=== PATIENT | female | born 1995 | race Caucasian/White ===

== ENCOUNTER 2018-10-28 23:18 | Emergency (ER) | payer MEDICARE, MEDICAID ==
[2018-10-28 23:54] LABS: ABSOLUTE BASOPHILS # (AUTO) 0.1 10^3/uL (0.0-0.2); ABSOLUTE EOSINOPHILS # (AUTO) 0.2 10^3/uL (0.0-0.6); ABSOLUTE LYMPHOCYTES (AUTO) 2.6 10^3/uL (0.5-4.7); ABSOLUTE MONOCYTES (AUTO) 0.6 10^3/uL (0.1-1.4); ABSOLUTE NEUT (AUTO) 7.6 10^3/uL (1.7-8.2); BASOPHILS % (AUTO) 0.8 % (0-2); EOSINOPHILS % (AUTO) 1.9 % (0-6); HEMOGLOBIN 11.2 g/dL (12.0-15.5); LYMPHOCYTES % (AUTO) 23.8 % (13-45); MEAN CORPUSCULAR HEMOGLOBIN 30.5 pg (27.0-33.4); MEAN CORPUSCULAR VOLUME 90 fl (80-97); MONOCYTES % (AUTO) 5.4 % (3-13); PLATELET COUNT 184 10^3/uL (150-450); RED BLOOD COUNT 3.68 10^6/uL (3.72-5.28); RED CELL DISTRIBUTION WIDTH 12.9 % (11.5-14.0); SEGMENTED NEUTROPHILS % (AUTO) 68.1 % (42-78); TOTAL CELLS COUNTED % (AUTO) 100 %; WHITE BLOOD COUNT 11.1 10^3/uL (4.0-10.5)
[2018-10-28 23:55] LABS: APPEARANCE,URINE CLEAR; BILIRUBIN,URINE NEGATIVE (NEGATIVE); COLOR,URINE YELLOW; GLUCOSE, URINE NEGATIVE (NEGATIVE); KETONES,URINE NEGATIVE (NEGATIVE); LEUKOCYTE ESTERASE,URINE NEGATIVE (NEGATIVE); NITRITE,URINE NEGATIVE (NEGATIVE); PROTEIN,URINE NEGATIVE (NEGATIVE); URINE SPECIFIC GRAVITY 1.013; UROBILINOGEN,URINE NEGATIVE mg/dL (<2.0)
[2018-10-29 00:09] LABS: URINE AMPHETAMINES SCREEN NEGATIVE; URINE BARBITURATES SCREEN NEGATIVE; URINE BENZODIAZEPINES SCREEN NEGATIVE; URINE COCAINE SCREEN NEGATIVE; URINE MARIJUANA (THC) SCREEN NEGATIVE; URINE METHADONE SCREEN NEGATIVE; URINE PHENCYCLIDINE SCREEN NEGATIVE
[2018-10-29 00:15] LABS: ALANINE AMINOTRANSFERASE 47 U/L (9-52); ALBUMIN 3.5 g/dL (3.5-5.0); ALKALINE PHOSPHATASE 67 U/L (38-126); ANION GAP 8 (5-19); ASPARTATE AMINO TRANSFERASE 29 U/L (14-36); BILIRUBIN,DIRECT 0.2 mg/dL (0.0-0.4); BILIRUBIN,TOTAL 0.2 mg/dL (0.2-1.3); BLOOD UREA NITROGEN 9 mg/dL (7-20); CALCIUM 9.1 mg/dL (8.4-10.2); CARBON DIOXIDE 23 mmol/L (22-30); CHLORIDE 106 mmol/L (98-107); GLUCOSE 110 mg/dL (75-110); POTASSIUM 3.7 mmol/L (3.6-5.0); SODIUM 137.3 mmol/L (137-145); TOTAL PROTEIN 6.8 g/dL (6.3-8.2)
[2018-10-29 00:21] LABS: ACETAMINOPHEN < 10 ug/mL (10-30); ALCOHOL < 10 mg/dL (NONE DETECTED); SALICYLATE < 1.0 mg/dL (2.0-20.0)
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
--- NOTE | 2018-10-29 09:23 | ER Document Report ---
Doctor's Note Notes: 10/29/18 09:22 22-year-old female in her second trimester with IVC paperwork secondary to some increased depression. She is already followed at [facility]. Patient is denying all allegations. Vital signs are stable. Awaiting the psychiatry/psychology evaluation.
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
[2018-10-29 10:40] VITALS: BP 110/63
[2018-10-29] MEDS ORDERED: LURASIDONE HCL 40 MG TABLET PO SCH (17:00)
--- NOTE | 2018-10-29 23:47 | EKG REPORT ---
SEVERITY:- NORMAL ECG - SINUS RHYTHM : Confirmed by: Jamia Chavez 29-Oct-2018 23:46:46
== END 2018-10-29 10:43 | disposition home or self-care (01) ==
LOC: ER 23:18
DX: O99.342 Other mental disorders complicating pregnancy, second trimester (principal); F31.9 Bipolar disorder, unspecified; Z79.899 Other long term (current) drug therapy; O26.892 Other specified pregnancy related conditions, second trimester; T76.11XA Adult physical abuse, suspected, initial encounter; Z3A.00 Weeks of gestation of pregnancy not specified; Z63.0 Problems in relationship with spouse or partner; Z88.2 Allergy status to sulfonamides
CPT/HCPCS: 36415; 80053; 80307; 81001; 84703; 85025; 93005; 93010; 99285

== ENCOUNTER 2018-11-15 14:22 | Observation (INO) | payer MEDICARE, MEDICAID ==
[2018-11-15] MEDS ORDERED: RINGERS SOLUTION,LACTATED 1,000 ML IV ONE (15:15)
[2018-11-15] MEDS ORDERED: RINGERS SOLUTION,LACTATED 1,000 ML IV PRN (15:15)
[2018-11-15 15:18] LABS: AMORPHOUS SEDIMENT,URINE 1+ /HPF; APPEARANCE,URINE CLOUDY; BILIRUBIN,URINE NEGATIVE (NEGATIVE); COLOR,URINE DARK YELLOW; GLUCOSE, URINE NEGATIVE (NEGATIVE); KETONES,URINE 20 mg/dL (NEGATIVE); LEUKOCYTE ESTERASE,URINE TRACE (NEGATIVE); NITRITE,URINE NEGATIVE (NEGATIVE); PROTEIN,URINE 30 mg/dL (NEGATIVE); URINE SPECIFIC GRAVITY 1.027
[2018-11-15 15:42] LABS: URINE AMPHETAMINES SCREEN NEGATIVE; URINE BENZODIAZEPINES SCREEN NEGATIVE; URINE METHADONE SCREEN NEGATIVE; URINE PHENCYCLIDINE SCREEN NEGATIVE
[2018-11-15 15:52] LABS: URINE BARBITURATES SCREEN UNCONFIRMED POSITIVE; URINE COCAINE SCREEN UNCONFIRMED POSITIVE; URINE MARIJUANA (THC) SCREEN UNCONFIRMED POSITIVE
[2018-11-15 16:08] LABS: ABSOLUTE EOSINOPHILS # (AUTO) 0.1 10^3/uL (0.0-0.6); ABSOLUTE LYMPHOCYTES (AUTO) 1.9 10^3/uL (0.5-4.7); ABSOLUTE MONOCYTES (AUTO) 0.7 10^3/uL (0.1-1.4); ABSOLUTE NEUT (AUTO) 7.8 10^3/uL (1.7-8.2); BASOPHILS % (AUTO) 0.4 % (0-2); EOSINOPHILS % (AUTO) 1.2 % (0-6); HEMOGLOBIN 10.9 g/dL (12.0-15.5); LYMPHOCYTES % (AUTO) 17.8 % (13-45); MEAN CORPUSCULAR HEMOGLOBIN 30.8 pg (27.0-33.4); MEAN CORPUSCULAR HGB CONC 35.1 g/dL (32.0-36.0); MEAN CORPUSCULAR VOLUME 88 fl (80-97); MONOCYTES % (AUTO) 6.6 % (3-13); PLATELET COUNT 194 10^3/uL (150-450); RED BLOOD COUNT 3.53 10^6/uL (3.72-5.28); RED CELL DISTRIBUTION WIDTH 12.7 % (11.5-14.0); TOTAL CELLS COUNTED % (AUTO) 100 %; WHITE BLOOD COUNT 10.5 10^3/uL (4.0-10.5)
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
[2018-11-15 16:21] LABS: INTERNATIONAL RATION (INR) 1.04; PROTHROMBIN TIME 14.2 SEC (11.4-15.4)
[2018-11-15 16:22] LABS: PARTIAL THROMBOPLASTIN TIME 30.6 SEC (23.5-35.8)
[2018-11-15] MEDS ORDERED: LURASIDONE HCL 60 MG TABLET PO SCH (17:00)
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
[2018-11-15] MEDS ORDERED: LURASIDONE HCL 40 MG TABLET PO SCH (18:15)
[2018-11-15] MEDS ORDERED: ACETAMINOPHEN 325 MG TABLET PO PRN (18:27)
[2018-11-15 18:31] LABS: FETAL RBC COUNT 0
[2018-11-15 18:33] LABS: KB INTERPRETATION NEGATIVE (NEGATIVE)
[2018-11-15 19:02] LABS: EPITHELIALS (WET MOUNT) 4+ EPITHELIALS SEEN; T.VAGINALIS (WET MOUNT) NO TRICHOMONAS SEEN; WBCS (WET MOUNT) FEW WBCS SEEN; YEAST (WET MOUNT) NO YEAST SEEN
[2018-11-15 19:03] LABS: RBCS (WET MOUNT) NO RBCS SEEN
[2018-11-15 19:12] LABS: CHLAM PCR NOT DETECTED (NOT DETECT); GON PCR NOT DETECTED (NOT DETECT)
[2018-11-15 19:19] LABS: ANION GAP 9 (5-19); BLOOD UREA NITROGEN 7 mg/dL (7-20); CARBON DIOXIDE 21 mmol/L (22-30); CHLORIDE 108 mmol/L (98-107); CREATINE KINASE 62 U/L (30-135); GLUCOSE 90 mg/dL (75-110); POTASSIUM 3.8 mmol/L (3.6-5.0); SODIUM 138.1 mmol/L (137-145)
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
[2018-11-16] MEDS ORDERED: ACETAMINOPHEN 325 MG TABLET ONE (07:32)
[2018-11-16 08:45] LABS: HEMATOCRIT 30.9 % (36.0-47.0); HEMOGLOBIN 10.8 g/dL (12.0-15.5); MEAN CORPUSCULAR HEMOGLOBIN 30.9 pg (27.0-33.4); MEAN CORPUSCULAR HGB CONC 34.8 g/dL (32.0-36.0); MEAN CORPUSCULAR VOLUME 89 fl (80-97); PLATELET COUNT 189 10^3/uL (150-450); RED BLOOD COUNT 3.48 10^6/uL (3.72-5.28); RED CELL DISTRIBUTION WIDTH 12.8 % (11.5-14.0)
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
[2018-11-16] MEDS ORDERED: LURASIDONE HCL 60 MG TABLET PO SCH ×2 (17:00→19:00)
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
[2018-11-23 14:38] LABS: BARBITURATE CONFIRMATION UR Negative (Cutoff=200)
[2018-11-23 22:39] LABS: COCAINE METABOLITE CONFIRM UR Positive (.)
[2018-11-24 09:33] LABS: CANNABINOID CONFIRMATION UR Comment: (.)
== END 2018-11-16 11:45 | disposition home or self-care (01) ==
LOC: LC 14:22 → LR 15:31
PROVIDERS: ADMIT Student in an Organized Health Care Education/Training Program; ATTEND Student in an Organized Health Care Education/Training Program
PROC: 4A1HXCZ Monitoring of Products of Conception, Cardiac Rate, External Approach (ICD-10-PCS; principal; 2018-11-16)
DX: O99.012 Anemia complicating pregnancy, second trimester (principal); D64.9 Anemia, unspecified; O9A.312 Physical abuse complicating pregnancy, second trimester; Y07.01 Husband, perpetrator of maltreatment and neglect; S39.91XA Unspecified injury of abdomen, initial encounter; O99.342 Other mental disorders complicating pregnancy, second trimester; F31.9 Bipolar disorder, unspecified; O99.322 Drug use complicating pregnancy, second trimester; F14.10 Cocaine abuse, uncomplicated; F12.10 Cannabis abuse, uncomplicated; S00.81XA Abrasion of other part of head, initial encounter; S00.83XA Contusion of other part of head, initial encounter; S05.11XA Contusion of eyeball and orbital tissues, right eye, initial encounter; S70.12XA Contusion of left thigh, initial encounter; S30.0XXA Contusion of lower back and pelvis, initial encounter; Y04.2XXA Assault by strike against or bumped into by another person, initial encounter; Y92.009 Unspecified place in unspecified non-institutional (private) residence as the place of occurrence of the external cause; O26.892 Other specified pregnancy related conditions, second trimester; R51 Headache; M26.621 Arthralgia of right temporomandibular joint; Z3A.20 20 weeks gestation of pregnancy; Z63.0 Problems in relationship with spouse or partner; Z87.891 Personal history of nicotine dependence; Z83.3 Family history of diabetes mellitus; Z81.8 Family history of other mental and behavioral disorders; Z91.410 Personal history of adult physical and sexual abuse
CPT/HCPCS: 36415 ×2; 87210; 80307 ×2; 82550; 85025; 85027; 85362; 85610; 85730; 80048; 81001; 85460; 87491; 87591; 76815; 59899; Q0114; G0480 ×6; A9270; 80345; 80349; 80353

== ENCOUNTER 2018-11-27 08:52 | Outpatient (CLI) | payer MEDICARE, MEDICAID ==
[2018-11-27 10:21] LABS: APPEARANCE,URINE SLIGHTLY-CLOUDY; BILIRUBIN,URINE NEGATIVE (NEGATIVE); GLUCOSE, URINE NEGATIVE (NEGATIVE); KETONES,URINE 80 mg/dL (NEGATIVE); LEUKOCYTE ESTERASE,URINE TRACE (NEGATIVE); NITRITE,URINE NEGATIVE (NEGATIVE); PROTEIN,URINE 30 mg/dL (NEGATIVE); URINE SPECIFIC GRAVITY 1.023
[2018-11-27 10:23] LABS: COLOR,URINE YELLOW
[2018-11-27 10:48] LABS: URINE AMPHETAMINES SCREEN NEGATIVE; URINE BARBITURATES SCREEN NEGATIVE; URINE BENZODIAZEPINES SCREEN NEGATIVE; URINE METHADONE SCREEN NEGATIVE; URINE PHENCYCLIDINE SCREEN NEGATIVE
[2018-11-27 10:56] LABS: URINE COCAINE SCREEN UNCONFIRMED POSITIVE; URINE MARIJUANA (THC) SCREEN UNCONFIRMED POSITIVE
== END 2018-11-27 11:39 | disposition home or self-care (01) ==
LOC: LC 08:52
PROVIDERS: ATTEND Obstetrics & Gynecology Gynecology
PROC: 4A1HXCZ Monitoring of Products of Conception, Cardiac Rate, External Approach (ICD-10-PCS; principal; 2018-11-27)
DX: O36.8120 Decreased fetal movements, second trimester, not applicable or unspecified (principal); O99.322 Drug use complicating pregnancy, second trimester; F14.90 Cocaine use, unspecified, uncomplicated; F12.90 Cannabis use, unspecified, uncomplicated; Z3A.27 27 weeks gestation of pregnancy
CPT/HCPCS: 80307; 81001

== ENCOUNTER 2018-12-02 13:43 | Outpatient (CLI) | payer MEDICAID, MEDICARE ==
[2018-12-02 15:56] LABS: APPEARANCE,URINE CLEAR; BILIRUBIN,URINE NEGATIVE (NEGATIVE); COLOR,URINE YELLOW; GLUCOSE, URINE NEGATIVE (NEGATIVE); KETONES,URINE NEGATIVE (NEGATIVE); LEUKOCYTE ESTERASE,URINE NEGATIVE (NEGATIVE); NITRITE,URINE NEGATIVE (NEGATIVE); PROTEIN,URINE NEGATIVE (NEGATIVE); URINE SPECIFIC GRAVITY 1.009; UROBILINOGEN,URINE NEGATIVE mg/dL (<2.0)
[2018-12-02 16:07] LABS: URINE AMPHETAMINES SCREEN NEGATIVE; URINE BARBITURATES SCREEN NEGATIVE; URINE BENZODIAZEPINES SCREEN NEGATIVE; URINE COCAINE SCREEN UNCONFIRMED POSITIVE; URINE MARIJUANA (THC) SCREEN UNCONFIRMED POSITIVE; URINE METHADONE SCREEN NEGATIVE; URINE PHENCYCLIDINE SCREEN NEGATIVE
== END 2018-12-02 15:09 | disposition home or self-care (01) ==
LOC: LC 13:43
PROVIDERS: ATTEND Obstetrics & Gynecology
PROC: 4A1HXCZ Monitoring of Products of Conception, Cardiac Rate, External Approach (ICD-10-PCS; principal; 2018-12-02)
DX: O36.8120 Decreased fetal movements, second trimester, not applicable or unspecified (principal); Z3A.27 27 weeks gestation of pregnancy
CPT/HCPCS: 80307; 81001

== ENCOUNTER 2018-12-02 15:15 | Emergency (ER) | payer MEDICAID, MEDICARE ==
--- NOTE | 2018-12-02 16:30 | ER Document Report ---
HPI - HPI Patient complains to provider of: right foot pain Time Seen by Provider: 12/02/18 15:21 Onset: Just prior to arrival Onset/Duration: Sudden, Persistent Quality of pain: Achy, Throbbing Severity: Severe Pain Level: 4 Context: Patient presents to the emergency department with complaints of right foot pain. She reports she jumped off her porch and now complains of foot pain. Patient arrived via EMS. When patient arrived she reports she has not felt the baby move recently. Patient is 7 months G1, P0. She was sent to L&D for evaluation. L&D confirmed baby movement and she was returned to the emergency department for pain and further evaluation. Patient denies hitting her head. Associated Symptoms: None Exacerbated by: Denies, Movement Relieved by: Denies Similar symptoms previously: No Recently seen / treated by doctor: No - REPRODUCTIVE Reproductive: REPORTS: : Past Medical History - General Information source: Patient - Social History Smoking Status: Current Every Day Smoker Frequency of alcohol use: Social Drug Abuse: Cocaine, Marijuana Family History: CAD, DM, Hypertension, Malignancy, Other - Significant history of mental illness Renal/ Medical History: Denies: Hx Peritoneal Dialysis Psychiatric Medical History: Reports: Hx Bipolar Disorder Past Surgical History: Reports: Hx Orthopedic Surgery - R arm Vertical Provider Document - CONSTITUTIONAL Agree With Documented VS: Yes Exam Limitations: No Limitations General Appearance: WD/WN, No Apparent Distress - INFECTION CONTROL TRAVEL OUTSIDE OF THE [place] IN LAST 30 DAYS: No - HEENT HEENT: Atraumatic, Normocephalic - NECK Neck: Supple - MUSCULOSKELETAL/EXTREMETIES Musculoskeletal/Extremeties: MAEW, FROM, Tender - No obvious deformity no swelling no erythema no warmth good distal movement good cap refill good pedal pulse - NEURO Level of Consciousness: Awake, Alert, Appropriate Course - Re-evaluation Re-evalutation: 12/02/18 17:15 foot xray negative, I contacted also [facility] department social service liaison on duty Shanice Ott. She was informed the patient's urine tox screen for positive cocaine and positive marijuana. 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 She was instructed that social service liaison had been updated on UA results. Patient was also instructed on the dangers that drugs can do to her unborn child. She verbalized understanding reports she is trying to get into rehab. Dictation of this chart was performed using voice recognition software; therefore, there may be some unintended grammatical errors. - Vital Signs Vital signs: Temp Pulse Resp BP Pulse Ox 98.0 F 96 14 115/61 100 12/02/18 15:24 12/02/18 15:24 12/02/18 15:24 12/02/18 15:24 12/02/18 15:24 - Diagnostic Test Radiology reviewed: Image reviewed, Reports reviewed Procedures - Immobilization Right Foot Pre-Proc Neuro Vasc Exam: Normal Immobilizer type: Prasad wrap Performed by: PCT Post-Proc Neuro Vasc Exam: Unchanged from pre-exam Alignment checked and good: Yes Discharge - Discharge Clinical Impression: Cannabis abuse, Cocaine abuse affecting Right foot injury Qualifiers: Encounter type: initial encounter Qualified Code(s): S99.921A - Unspecified injury of right foot, initial encounter Condition: Stable Disposition: HOME, SELF-CARE Instructions: Acetaminophen, Prasad Wrap ([facility]), Cocaine Abuse ([facility]), Use of Crutches ([facility]), Ice & Elevation ([facility]), ([facility]) Additional Instructions: *You have been evaluated for foot pain X-ray was negative no acute injury was noted *Maintain the prasad wrap and use the crutches for the next three days *Rest/Ice/Elevate your foot *Follow up with orthopedics for evaluation within one week *Take Tylenol as indicated Follow-up with your CAMERA CONTROL OPERATOR within 3 days. Avoid alcohol cocaine and marijuana *Return to ED for worsening condition, changes, needs Referrals: NOHEMI VALDOVINOS MD [ACTIVE STAFF] - Follow up as needed
--- NOTE | 2018-12-02 17:07 | RADIOLOGY REPORT (SQ) ---
EXAM DESCRIPTION: FOOT RIGHT COMPLETE COMPLETED DATE/TIME: 12/02/2018 3:57 pm REASON FOR STUDY: foot pain COMPARISON: None. NUMBER OF VIEWS: Three views. TECHNIQUE: AP, lateral and oblique radiographic images acquired of the right foot. LIMITATIONS: None. FINDINGS: MINERALIZATION: Normal. BONES: No acute fracture or dislocation. No worrisome bone lesions. JOINTS: No effusions. SOFT TISSUES: No soft tissue gas. No foreign body. OTHER: No other significant finding. IMPRESSION: NEGATIVE STUDY OF THE RIGHT FOOT. NO RADIOGRAPHIC EVIDENCE OF ACUTE INJURY. TECHNICAL DOCUMENTATION: JOB ID: [id number] [employer]- All Rights Reserved Reading location - IP/workstation name: [email or web address]
[2018-12-02] MEDS ORDERED: ACETAMINOPHEN 325 MG TABLET PO ONE (17:08)
[2018-12-02 17:51] VITALS: BP 121/69
== END 2018-12-02 17:51 | disposition home or self-care (01) ==
LOC: ER 15:15
DX: O9A.219 Injury, poisoning and certain other consequences of external causes complicating pregnancy, unspecified trimester (principal); S99.921A Unspecified injury of right foot, initial encounter; X58.XXXA Exposure to other specified factors, initial encounter; O99.320 Drug use complicating pregnancy, unspecified trimester; F14.10 Cocaine abuse, uncomplicated; F12.10 Cannabis abuse, uncomplicated; O99.330 Smoking (tobacco) complicating pregnancy, unspecified trimester; Z3A.00 Weeks of gestation of pregnancy not specified
CPT/HCPCS: 99283; 73630; J3490

== ENCOUNTER 2018-12-13 14:21 | Emergency (ER) | payer MEDICAID ==
[2018-12-13 15:33] VITALS: BP 111/55
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
[2018-12-13 16:48] LABS: ABSOLUTE EOSINOPHILS # (AUTO) 0.3 10^3/uL (0.0-0.6); ABSOLUTE LYMPHOCYTES (AUTO) 1.5 10^3/uL (0.5-4.7); ABSOLUTE MONOCYTES (AUTO) 0.7 10^3/uL (0.1-1.4); ABSOLUTE NEUT (AUTO) 12.4 10^3/uL (1.7-8.2); BASOPHILS % (AUTO) 0.1 % (0-2); EOSINOPHILS % (AUTO) 1.9 % (0-6); HEMATOCRIT 32.8 % (36.0-47.0); HEMOGLOBIN 11.5 g/dL (12.0-15.5); MEAN CORPUSCULAR HEMOGLOBIN 30.3 pg (27.0-33.4); MEAN CORPUSCULAR VOLUME 86 fl (80-97); MONOCYTES % (AUTO) 4.4 % (3-13); PLATELET COUNT 217 10^3/uL (150-450); RED CELL DISTRIBUTION WIDTH 12.5 % (11.5-14.0); SEGMENTED NEUTROPHILS % (AUTO) 83.6 % (42-78); TOTAL CELLS COUNTED % (AUTO) 100 %; WHITE BLOOD COUNT 14.9 10^3/uL (4.0-10.5)
[2018-12-13 17:15] LABS: ALANINE AMINOTRANSFERASE 30 U/L (9-52); ALKALINE PHOSPHATASE 114 U/L (38-126); ANION GAP 9 (5-19); ASPARTATE AMINO TRANSFERASE 24 U/L (14-36); BILIRUBIN,DIRECT 0.3 mg/dL (0.0-0.4); BILIRUBIN,TOTAL 0.4 mg/dL (0.2-1.3); BLOOD UREA NITROGEN 4 mg/dL (7-20); CARBON DIOXIDE 23 mmol/L (22-30); CHLORIDE 107 mmol/L (98-107); GLUCOSE 105 mg/dL (75-110); POTASSIUM 3.7 mmol/L (3.6-5.0); SODIUM 138.9 mmol/L (137-145); TOTAL PROTEIN 5.9 g/dL (6.3-8.2)
[2018-12-13 17:17] LABS: ACETAMINOPHEN < 10 ug/mL (10-30); ALCOHOL < 10 mg/dL (NONE DETECTED)
[2018-12-13 18:36] LABS: AMORPHOUS SEDIMENT,URINE TRACE /HPF; APPEARANCE,URINE CLOUDY; BILIRUBIN,URINE SMALL (NEGATIVE); CALCIUM OXALATE CRYSTALS,URINE TOO NUMEROUS TO CNT /HPF; COLOR,URINE AMBER; GLUCOSE, URINE NEGATIVE (NEGATIVE); KETONES,URINE 20 mg/dL (NEGATIVE); LEUKOCYTE ESTERASE,URINE TRACE (NEGATIVE); NITRITE,URINE NEGATIVE (NEGATIVE); PROTEIN,URINE 30 mg/dL (NEGATIVE); URINE SPECIFIC GRAVITY 1.024
[2018-12-13 18:41] LABS: URINE BARBITURATES SCREEN NEGATIVE; URINE BENZODIAZEPINES SCREEN NEGATIVE; URINE COCAINE SCREEN UNCONFIRMED POSITIVE; URINE MARIJUANA (THC) SCREEN UNCONFIRMED POSITIVE; URINE METHADONE SCREEN NEGATIVE; URINE PHENCYCLIDINE SCREEN NEGATIVE
[2018-12-13 18:49] LABS: URINE AMPHETAMINES SCREEN NEGATIVE
== END 2018-12-13 22:50 | disposition left against medical advice (07) ==
LOC: ER 14:21
DX: O99.320 Drug use complicating pregnancy, unspecified trimester (principal); F14.10 Cocaine abuse, uncomplicated; F12.10 Cannabis abuse, uncomplicated; Z3A.00 Weeks of gestation of pregnancy not specified; Z88.2 Allergy status to sulfonamides; Z53.20 Procedure and treatment not carried out because of patient's decision for unspecified reasons
CPT/HCPCS: 36415; 80053; 80307; 81001; 85025; 99281

== ENCOUNTER 2018-12-15 22:14 | Inpatient (IN) | payer MEDICAID ==
[2018-12-15 23:41] LABS: ABSOLUTE BASOPHILS # (AUTO) 0.1 10^3/uL (0.0-0.2); ABSOLUTE EOSINOPHILS # (AUTO) 0.1 10^3/uL (0.0-0.6); ABSOLUTE LYMPHOCYTES (AUTO) 1.5 10^3/uL (0.5-4.7); ABSOLUTE NEUT (AUTO) 14.4 10^3/uL (1.7-8.2); BASOPHILS % (AUTO) 0.6 % (0-2); EOSINOPHILS % (AUTO) 0.6 % (0-6); HEMATOCRIT 35.4 % (36.0-47.0); HEMOGLOBIN 12.2 g/dL (12.0-15.5); LYMPHOCYTES % (AUTO) 8.6 % (13-45); MEAN CORPUSCULAR HEMOGLOBIN 29.8 pg (27.0-33.4); MEAN CORPUSCULAR HGB CONC 34.6 g/dL (32.0-36.0); MEAN CORPUSCULAR VOLUME 86 fl (80-97); MONOCYTES % (AUTO) 5.7 % (3-13); PLATELET COUNT 242 10^3/uL (150-450); RED BLOOD COUNT 4.11 10^6/uL (3.72-5.28); RED CELL DISTRIBUTION WIDTH 12.4 % (11.5-14.0); SEGMENTED NEUTROPHILS % (AUTO) 84.5 % (42-78); TOTAL CELLS COUNTED % (AUTO) 100 %; WHITE BLOOD COUNT 17.1 10^3/uL (4.0-10.5)
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
--- NOTE | 2018-12-16 00:14 | RADIOLOGY REPORT (SQ) ---
EXAM DESCRIPTION: XR CHEST 1 VIEW COMPLETED DATE/TME: 12/15/2018 23:10 CLINICAL HISTORY: 22 years Female, persistent productive cough in COMPARISON: None. NUMBER OF VIEWS/TECHNIQUE: 1/AP FINDINGS: Adequate lung volume, small multifocal patchiness involves bilateral lower lobes and the right upper lobe, prominent interstitium, normal cardiac silhouette, and intact bony thorax. Osteotomy plate and screw fixation at the proximal right humeral shaft. IMPRESSION: Multifocal pneumonia. Differential diagnosis includes mild pulmonary edema.
[2018-12-16] MEDS ORDERED: AZITHROMYCIN INJ 500 MG VIAL IV PRN (01:00)
[2018-12-16] MEDS ORDERED: ACETAMINOPHEN 325 MG TABLET PO ONE (01:00)
[2018-12-16] MEDS ORDERED: CEFTRIAXONE 1 GM/D5W RTU 1 GM/50 ML RTUPB IV ONE ×2 (01:00→21:30)
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
[2018-12-16 01:45] LABS: AMORPHOUS SEDIMENT,URINE TRACE /HPF; APPEARANCE,URINE SLIGHTLY-CLOUDY; BILIRUBIN,URINE NEGATIVE (NEGATIVE); COLOR,URINE YELLOW; GLUCOSE, URINE NEGATIVE (NEGATIVE); KETONES,URINE 20 mg/dL (NEGATIVE); LEUKOCYTE ESTERASE,URINE MODERATE (NEGATIVE); NITRITE,URINE NEGATIVE (NEGATIVE); PROTEIN,URINE NEGATIVE (NEGATIVE); URINE SPECIFIC GRAVITY 1.005
[2018-12-16] MEDS: RINGERS SOLUTION,LACTATED 1,000 ML IV PRN ×2 (02:00→16:44)
[2018-12-16 02:02] LABS: FETAL RBC COUNT 0
[2018-12-16 02:11] LABS: URINE AMPHETAMINES SCREEN NEGATIVE; URINE BARBITURATES SCREEN NEGATIVE; URINE BENZODIAZEPINES SCREEN NEGATIVE; URINE MARIJUANA (THC) SCREEN NEGATIVE; URINE METHADONE SCREEN NEGATIVE; URINE PHENCYCLIDINE SCREEN NEGATIVE
[2018-12-16 02:12] LABS: KB INTERPRETATION NEGATIVE (NEGATIVE)
[2018-12-16] MEDS ORDERED: CEFTRIAXONE INJ 1000 MG VIAL ONE (02:13)
[2018-12-16] MEDS ORDERED: ACETAMINOPHEN 325 MG TABLET ONE ×3 (02:13→22:15)
[2018-12-16 02:15] LABS: URINE COCAINE SCREEN UNCONFIRMED POSITIVE
[2018-12-16] MEDS ORDERED: GUAIFENESIN 600 MG TABLET.SA PO ONE (02:31)
[2018-12-16] MEDS ORDERED: RINGERS SOLUTION,LACTATED 1,000 ML IV ONE (02:50)
[2018-12-16] MEDS ORDERED: AZITHROMYCIN INJ 500 MG VIAL IV ONE (04:00)
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
[2018-12-16] MEDS ORDERED: AZITHROMYCIN 500 MG in DEXTROSE 5%-WATER 250 ML IV SCH (06:00)
[2018-12-16] MEDS ORDERED: IPRATROPIUM/ALBUTEROL 0.5-2.5 MG/3 ML AMPUL NEB PRN (07:55)
--- NOTE | 2018-12-16 09:20 | PDOC PROGRESS REPORT ---
Subjective Progress Note for:: 12/16/18 Subjective:: Nursing staff called reporting pt is withdrawl symptoms, requesting 'something'. pt is grinding her teeth, shaking however intermittently dosing off. Admitted for pneumonia, G1 @ 29wks EGA Reason For Visit: Physical Exam - Physical Exam Vital Signs: Temp Pulse Resp BP Pulse Ox 97.5 F 94 30 H 98/51 L 97 12/16/18 08:27 12/16/18 08:27 12/16/18 08:27 12/16/18 08:27 12/16/18 08:27 Intake & Output 12/15/18 12/16/18 12/17/18 06:59 06:59 06:59 Weight 77.6 kg Result Laboratory Results: 12/15/18 23:28 12/15/18 12/16/18 23:28 01:02 WBC 17.1 H RBC 4.11 Hgb 12.2 Hct 35.4 L MCV 86 MCH 29.8 MCHC 34.6 RDW 12.4 Plt Count 242 Seg Neutrophils % 84.5 H Lymphocytes % 8.6 L Monocytes % 5.7 Eosinophils % 0.6 Basophils % 0.6 Absolute Neutrophils 14.4 H Absolute Lymphocytes 1.5 Absolute Monocytes 1.0 Absolute Eosinophils 0.1 Absolute Basophils 0.1 Urine Color YELLOW Urine Appearance SLIGHTLY-CLOUDY Urine pH 7.0 Ur Specific [place] 1.005 Urine Protein NEGATIVE Urine Glucose (UA) NEGATIVE Urine Ketones 20 H Urine Blood NEGATIVE Urine Nitrite NEGATIVE Ur Leukocyte Esterase MODERATE H Urine WBC (Auto) 7 Urine RBC (Auto) 1 Impressions: Chest X-Ray 12/15/18 23:10 IMPRESSION: Multifocal pneumonia. Differential diagnosis includes mild pulmonary edema. Obstetrics Ultrasound 12/15/18 23:10 IMPRESSION: Living IUP in vertex presentation No evidence of abruption or previa Assessment & Plan - Diagnosis (1) Cocaine abuse affecting Qualifiers: Trimester: third trimester Qualified Code(s): O99.323 - Drug use complicating , third trimester; F14.10 - Cocaine abuse, uncomplicated Is this a current diagnosis for this admission?: Yes - Plan Summary Plan Summary: Will treat with 0.5mg ativan x1. If symptoms return, will consider valium. Plan to continue w/ABX therapy for pneumonia and breathing treatments prn.
[2018-12-16] MEDS ORDERED: LORAZEPAM 0.5 MG TABLET PO ONE (10:00)
[2018-12-16] MEDS: GUAIFENESIN 600 MG TABLET.SA PO SCH ×2 (11:20→22:05)
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
[2018-12-16] MEDS: IPRATROPIUM BROMIDE 0.02% NEB 0.5 MG/2.5 ML AMPUL NEB PRN ×3 (16:06→23:51)
[2018-12-16] MEDS ORDERED: CEFTRIAXONE 1 GM/D5W RTU 1 GM/50 ML RTUPB IV SCH (22:00)
[2018-12-16] MEDS: ACETAMINOPHEN 325 MG TABLET PO PRN (22:08)
[2018-12-16] MEDS: CEFTRIAXONE 1 GM/D5W RTU 1 GM/50 ML RTUPB IV SCH (22:11)
[2018-12-17] MEDS ORDERED: CEFTRIAXONE INJ 1000 MG VIAL IV SCH (02:30)
[2018-12-17] MEDS: RINGERS SOLUTION,LACTATED 1,000 ML IV PRN (02:45)
[2018-12-17] MEDS ORDERED: AZITHROMYCIN INJ 500 MG VIAL IV SCH (04:00)
[2018-12-17] MEDS: IPRATROPIUM BROMIDE 0.02% NEB 0.5 MG/2.5 ML AMPUL NEB PRN ×3 (04:49→19:35)
[2018-12-17] MEDS ORDERED: AZITHROMYCIN INJ 500 MG VIAL IV ONE (05:00)
[2018-12-17] MEDS: AZITHROMYCIN 500 MG in DEXTROSE 5%-WATER 250 ML IV SCH (05:34)
[2018-12-17] MEDS: GUAIFENESIN 600 MG TABLET.SA PO SCH (09:26)
[2018-12-17 10:06] LABS: HEMATOCRIT 30.4 % (36.0-47.0); HEMOGLOBIN 10.7 g/dL (12.0-15.5); MEAN CORPUSCULAR HEMOGLOBIN 30.5 pg (27.0-33.4); MEAN CORPUSCULAR HGB CONC 35.1 g/dL (32.0-36.0); MEAN CORPUSCULAR VOLUME 87 fl (80-97); PLATELET COUNT 205 10^3/uL (150-450); RED CELL DISTRIBUTION WIDTH 12.8 % (11.5-14.0)
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
[2018-12-17] MEDS: GUAIFENESIN/D-METHORPHAN (200-20 MG) SYRUP 10 ML PO PRN ×2 (17:06→22:34)
[2018-12-17] MEDS: ACETAMINOPHEN 325 MG TABLET PO PRN ×2 (17:07→22:50)
[2018-12-17] MEDS ORDERED: ZOLPIDEM TARTRATE 5 MG TABLET PO SCH (22:00)
[2018-12-17] MEDS ORDERED: CEFTRIAXONE 1 GM/D5W RTU 1 GM/50 ML RTUPB IV ONE (22:32)
[2018-12-17] MEDS: CEFTRIAXONE 1 GM/D5W RTU 1 GM/50 ML RTUPB IV SCH (22:38)
[2018-12-17] MEDS: DOCUSATE SODIUM 100 MG CAPSULE PO SCH (22:38)
[2018-12-18] MEDS: AZITHROMYCIN 500 MG in DEXTROSE 5%-WATER 250 ML IV SCH (05:08)
[2018-12-18 06:39] LABS: HEMATOCRIT 28.6 % (36.0-47.0); HEMOGLOBIN 10.1 g/dL (12.0-15.5); MEAN CORPUSCULAR HGB CONC 35.4 g/dL (32.0-36.0); MEAN CORPUSCULAR VOLUME 88 fl (80-97); PLATELET COUNT 179 10^3/uL (150-450); RED BLOOD COUNT 3.27 10^6/uL (3.72-5.28); WHITE BLOOD COUNT 9.2 10^3/uL (4.0-10.5)
[2018-12-18 07:01] LABS: ANION GAP 6 (5-19); BLOOD UREA NITROGEN 2 mg/dL (7-20); CALCIUM 8.6 mg/dL (8.4-10.2); CARBON DIOXIDE 23 mmol/L (22-30); CHLORIDE 108 mmol/L (98-107); GLUCOSE 77 mg/dL (75-110); PHOSPHORUS 3.8 mg/dL (2.5-4.5); POTASSIUM 3.7 mmol/L (3.6-5.0); SODIUM 137.1 mmol/L (137-145)
[2018-12-18] MEDS: ACETAMINOPHEN 325 MG TABLET PO PRN (09:08)
[2018-12-18] MEDS: GUAIFENESIN/D-METHORPHAN (200-20 MG) SYRUP 10 ML PO PRN ×2 (09:09→21:26)
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
[2018-12-18] MEDS ORDERED: LURASIDONE HCL 60 MG TABLET PO ONE (17:00)
[2018-12-18] MEDS: BUSPIRONE HCL 10 MG TABLET PO SCH (21:25)
[2018-12-18] MEDS: DOCUSATE SODIUM 100 MG CAPSULE PO SCH (21:54)
[2018-12-18] MEDS ORDERED: CEFTRIAXONE SODIUM 1,000 MG in DEXTROSE 5%-WATER 50 ML IV SCH (22:00)
[2018-12-19] MEDS: IPRATROPIUM BROMIDE 0.02% NEB 0.5 MG/2.5 ML AMPUL NEB PRN ×2 (00:06→07:41)
[2018-12-19] MEDS: AZITHROMYCIN 500 MG in DEXTROSE 5%-WATER 250 ML IV SCH (06:16)
[2018-12-19] MEDS ORDERED: LURASIDONE HCL 60 MG TABLET PO SCH (10:00)
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
--- NOTE | 2018-12-19 11:52 | PSYCHOLOGICAL NOTE ---
Psych Note - Psych Note Date seen by psych provider: 12/18/18 Psych Note: Diagnosis: Bipolar by History 30 weeks Cocaine Use Disorder Impression/Plan: Patient is cleared from acute psychiatric services. She denied SI/HI and no observed psychosis. The attending Hospitalist reached out to medication provider (per patient Dr. Mclain, was there 3 weeks ago Tuesday, had signed up fro therapy but missed first appointment) at [facility] for medication recommendations, she had been on Latuda 60MG QD and Buspar 5MG BID, was taking the Latuda until 3 weeks ago when she ran out, was not taking the Buspar, had been on Invega injection in the past and was seeing Gypsy Schwartz at [facility] in , had documented childhood mental health disorders and learning disability. Attending Hospitalist to start the Latuda at 30MG QD and increase, made a [facility] referral and phone interview to take place tomorrow (12/19/18) morning. Mother and Aunt at bedside as natural supports. Housing may be an issue. Consulted with Dr. Breewr regarding the management and care of patient. Coordinated with Attending Hospitalist.
[2018-12-19] MEDS: BUSPIRONE HCL 10 MG TABLET PO SCH (12:10)
[2018-12-19 12:25] VITALS: BP 127/56
[2018-12-19] MEDS ORDERED: NICOTINE 21 MG/24 HR PATCH.TD24 TD PRN (14:03)
[2018-12-19] MEDS ORDERED: HYDROXYZINE PAMOATE 50 MG CAPSULE PO PRN (14:04)
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
[2018-12-20] MEDS ORDERED: AZITHROMYCIN 250 MG TABLET PO SCH (10:00)
== END 2018-12-19 14:59 | disposition left against medical advice (07) | DRG 831 ==
LOC: LC 22:14 → LR 12-16 00:29 → 2S 12-16 02:55
PROVIDERS: ADMIT Obstetrics & Gynecology; ATTEND Obstetrics & Gynecology
PROC: 4A1HXCZ Monitoring of Products of Conception, Cardiac Rate, External Approach (ICD-10-PCS; principal; 2018-12-16)
DX: O9A.313 Physical abuse complicating pregnancy, third trimester (principal); J18.9 Pneumonia, unspecified organism; F14.20 Cocaine dependence, uncomplicated; O26.833 Pregnancy related renal disease, third trimester; O99.323 Drug use complicating pregnancy, third trimester; O99.513 Diseases of the respiratory system complicating pregnancy, third trimester; Y04.0XXA Assault by unarmed brawl or fight, initial encounter; O99.013 Anemia complicating pregnancy, third trimester; D64.9 Anemia, unspecified; F12.10 Cannabis abuse, uncomplicated; O99.283 Endocrine, nutritional and metabolic diseases complicating pregnancy, third trimester; E03.9 Hypothyroidism, unspecified; N18.9 Chronic kidney disease, unspecified; F31.9 Bipolar disorder, unspecified; O99.343 Other mental disorders complicating pregnancy, third trimester; O99.213 Obesity complicating pregnancy, third trimester; E66.9 Obesity, unspecified; Y07.01 Husband, perpetrator of maltreatment and neglect; Z88.2 Allergy status to sulfonamides; Z87.891 Personal history of nicotine dependence; Y92.009 Unspecified place in unspecified non-institutional (private) residence as the place of occurrence of the external cause; Z91.14 Patient's other noncompliance with medication regimen; Z3A.29 29 weeks gestation of pregnancy
CPT/HCPCS: 36415; 71045; 76815; 80048; 80307; 80353; 81001; 83735; 84100; 84443; 85025; 85027; 85460; 87040; 87070; 87205; 94640; 94760; 94799; G0480; J0456; J0696; J3490; J7060; J7120

== ENCOUNTER 2018-12-19 22:42 | Emergency (ER) | payer MEDICAID ==
[2018-12-19 23:23] VITALS: BP 116/63
== END 2018-12-20 01:45 | disposition left against medical advice (07) ==
LOC: ER 22:42
DX: Z53.21 Procedure and treatment not carried out due to patient leaving prior to being seen by health care provider (principal)

== ENCOUNTER 2019-09-29 17:25 | Emergency (ER) | payer MEDICAID ==
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
[2019-09-29 18:29] LABS: ABSOLUTE EOSINOPHILS # (AUTO) 0.2 10^3/uL (0.0-0.6); ABSOLUTE LYMPHOCYTES (AUTO) 2.1 10^3/uL (0.5-4.7); ABSOLUTE MONOCYTES (AUTO) 0.6 10^3/uL (0.1-1.4); ABSOLUTE NEUT (AUTO) 5.3 10^3/uL (1.7-8.2); BASOPHILS % (AUTO) 0.3 % (0-2); HEMOGLOBIN 12.8 g/dL (12.0-15.5); LYMPHOCYTES % (AUTO) 25.9 % (13-45); MEAN CORPUSCULAR HEMOGLOBIN 28.8 pg (27.0-33.4); MEAN CORPUSCULAR HGB CONC 33.8 g/dL (32.0-36.0); MEAN CORPUSCULAR VOLUME 85 fl (80-97); MONOCYTES % (AUTO) 7.4 % (3-13); PLATELET COUNT 290 10^3/uL (150-450); RED BLOOD COUNT 4.45 10^6/uL (3.72-5.28); RED CELL DISTRIBUTION WIDTH 14.3 % (11.5-14.0); SEGMENTED NEUTROPHILS % (AUTO) 64.4 % (42-78); TOTAL CELLS COUNTED % (AUTO) 100 %; WHITE BLOOD COUNT 8.3 10^3/uL (4.0-10.5)
[2019-09-29 18:40] LABS: ALBUMIN 4.5 g/dL (3.5-5.0); ALKALINE PHOSPHATASE 71 U/L (38-126); ANION GAP 9 (5-19); ASPARTATE AMINO TRANSFERASE 18 U/L (14-36); BILIRUBIN,TOTAL 0.3 mg/dL (0.2-1.3); BLOOD UREA NITROGEN 8 mg/dL (7-20); CALCIUM 9.8 mg/dL (8.4-10.2); CARBON DIOXIDE 26 mmol/L (22-30); CHLORIDE 105 mmol/L (98-107); GLUCOSE 94 mg/dL (75-110); POTASSIUM 4.7 mmol/L (3.6-5.0); TOTAL PROTEIN 7.7 g/dL (6.3-8.2)
--- NOTE | 2019-09-29 18:42 | ER Document Report ---
ED General - General Chief Complaint: Hand Swelling Stated Complaint: HAND INJURY/INFECTION Time Seen by Provider: 09/29/19 17:46 Mode of Arrival: Ambulatory Notes: Patient is a 23-year-old female with past medical history significant for methamphetamine abuse who presents to the emergency department the chief complaint of swollen red right hand that began this morning. The patient reports last night she injected meth into the dorsum of the right hand. She states afterward it was fine. She states before bed her was playing around and squeezed her right hand. She states when she woke this morning she noticed some tenderness to the right hand. She states throughout the day it has begun to swell and turn red and become more warm. She denies any proximal streaking or drainage. Denies any fever, chills or night sweats. No nausea vomiting or diarrhea. TRAVEL OUTSIDE OF THE [place] IN LAST 30 DAYS: No - Related Data Allergies/Adverse Reactions: Sulfa (Sulfonamide Antibiotics) Allergy (Verified 09/29/19 17:45) Past Medical History - General Information source: Patient - Social History Smoking Status: Former Smoker Frequency of alcohol use: None Drug Abuse: Cocaine, Methamphetamine, Other Family History: CAD, DM, Hypertension, Malignancy, Other - Significant history of mental illness Patient has suicidal ideation: No Patient has homicidal ideation: No - Past Medical History Cardiac Medical History: Denies: Hx Coronary Artery Disease, Hx DVT, Hx Hypertension, Hx Pulmonary Embolism Pulmonary Medical History: Reports: Hx Pneumonia Denies: Hx Asthma, Hx COPD, Hx Respiratory Failure Neurological Medical History: Denies: Hx Seizures Endocrine Medical History: Reports: Hx Hypothyroidism. Denies: Hx Diabetes Mellitus Type 1, Hx Hyperthyroidism Renal/ Medical History: Denies: Hx Peritoneal Dialysis GI Medical History: Denies: Hx Cirrhosis, Hx Crohn's Disease, Hx Hepatitis, Hx Ulcerative Colitis Musculoskeletal Medical History: Denies Hx Arthritis, Denies Hx Fibromyalgia Skin Medical History: Denies Hx Eczema, Denies Hx Psoriasis Psychiatric Medical History: Reports: Hx Bipolar Disorder, Hx Depression Infectious Medical History: Denies: Hx Hepatitis Past Surgical History: Reports: Hx Orthopedic Surgery - R arm ORIF Review of Systems - Review of Systems Musculoskeletal: Joint pain Skin: Change in color -: Yes All other systems reviewed and negative Physical Exam - Vital signs Vitals: Temp Pulse Resp BP Pulse Ox 98.3 F 124 H 16 133/86 H 98 09/29/19 17:52 09/29/19 17:52 09/29/19 17:52 09/29/19 17:52 09/29/19 17:52 - General General appearance: Appears well, Alert In distress: None - Respiratory Respiratory status: No respiratory distress Chest status: Nontender Breath sounds: Normal Chest palpation: Normal - Cardiovascular Rhythm: Regular Heart sounds: Normal auscultation - Extremities General upper extremity: Other - Tenderness to the dorsal right hand. Full passive range of motion of all the digits of the right hand. Ancillary Specialist strength decreased secondary to pain. 2+ radial on the right. Good capillary refill distally in the right hand. - Neurological Neuro grossly intact: Yes Cognition: Normal Orientation: AAOx4 - Psychological Associated symptoms: Anxious - Skin Skin Color: Other - Increased warmth, erythema and swelling to the dorsal right hand. No fluctuance. No proximal streaking. Course - Re-evaluation Re-evalutation: 09/29/19 20:00 Counseled patient about methamphetamine abuse. She is very anxious to leave the department. Her white count is normal. X-rays negative for acute process per radiologist. She appears to have a localized infection secondary to the injection. She was given Rocephin IM here. Will be sent home on Bactrim DS twice daily for the next 10 days. Counseled her regarding the importance of outpatient follow-up and advised she return here or any ER immediately with any new, persistent or worsening symptoms. She verbalized understood and agreed. - Vital Signs Vital signs: Temp Pulse Resp BP Pulse Ox 97.6 F 95 18 108/78 100 09/29/19 19:48 09/29/19 19:48 09/29/19 19:48 09/29/19 19:48 09/29/19 19:48 - Laboratory Result Diagrams: 09/29/19 18:09 09/29/19 18:09 Laboratory results interpreted by me: 09/29/19 18:09 RDW 14.3 H Discharge - Discharge Clinical Impression: Substance abuse Cellulitis Qualifiers: Site of cellulitis: other site Qualified Code(s): L03.818 - Cellulitis of other sites Condition: Stable Disposition: HOME, SELF-CARE Instructions: Cellulitis ([facility]) Additional Instructions: Follow-up with your regular doctor in 2 to 3 days for reevaluation. Return here or any ER immediately with any new, persistent or worsening symptoms. Prescriptions: Clindamycin HCl 300 mg PO Q6 #40 capsule
[2019-09-29] MEDS ORDERED: CEFTRIAXONE INJ 1000 MG VIAL IM ONE (18:53)
--- NOTE | 2019-09-29 19:24 | RADIOLOGY REPORT (SQ) ---
EXAM DESCRIPTION: HAND BILATERAL 2 VIEWS COMPLETED DATE/TIME: 09/29/2019 7:13 pm REASON FOR STUDY: pain swelling COMPARISON: None. EXAM PARAMETERS: NUMBER OF VIEWS: Two view. TECHNIQUE: AP, lateral and oblique radiographic images acquired of the right and left hand. LIMITATIONS: None. FINDINGS: MINERALIZATION: Normal. BONES: No acute fracture or dislocation. No worrisome bone lesions. JOINTS: No effusions. SOFT TISSUES: Dorsal right greater than left hand soft tissue swelling. No radiopaque foreign body. OTHER: No other significant finding. IMPRESSION: Dorsal right greater than left hand soft tissue swelling. No acute osseous abnormality. TECHNICAL DOCUMENTATION: JOB ID: [id number] 2010 [email or web address]- All Rights Reserved Reading location - IP/workstation name: [email or web address]
[2019-09-29 19:53] VITALS: BP 108/78
== END 2019-09-29 20:10 | disposition home or self-care (01) ==
LOC: ER 17:25
DX: L03.90 Cellulitis, unspecified (principal); F15.10 Other stimulant abuse, uncomplicated; F14.10 Cocaine abuse, uncomplicated; M25.50 Pain in unspecified joint; Z87.891 Personal history of nicotine dependence; Z88.2 Allergy status to sulfonamides
CPT/HCPCS: 99283; 96372; 36415; 84703; 85025; 80053; 73120; J0696

== ENCOUNTER 2019-10-01 11:30 | Inpatient (IN) | payer MEDICAID ==
--- NOTE | 2019-10-01 12:50 | ER Document Report ---
ED Medical Screen (RME) - General Chief Complaint: Hand Swelling Stated Complaint: LEFT HAND SWOLLEN Time Seen by Provider: 10/01/19 12:46 Mode of Arrival: Ambulatory Information source: Patient Notes: 23-year-old female with history of IV meth use presents emergency department with increased swelling and erythema to her right hand and wrist. Patient was evaluated and treated here 2 days ago for same symptoms. She was evaluated after she injected meth into her right hand. She reports she is taking her p.o. antibiotics. Erythema and swelling to the right hand now has streaking up her right wrist. Denies fever. Patient reports she is still doing IV meth but not in that hand. I have greeted and performed a rapid initial assessment of this patient. A comprehensive ED assessment and evaluation of the patient, analysis of test results and completion of the medical decision making process will be conducted by additional ED providers. TRAVEL OUTSIDE OF THE [place] IN LAST 30 DAYS: No - Related Data Allergies/Adverse Reactions: Sulfa (Sulfonamide Antibiotics) Allergy (Verified 09/29/19 17:45) Past Medical History - Social History Family history: None - Past Medical History Cardiac Medical History: Denies: Hx Coronary Artery Disease, Hx DVT, Hx Hypertension, Hx Pulmonary Embolism Pulmonary Medical History: Reports: Hx Pneumonia Denies: Hx Asthma, Hx COPD, Hx Respiratory Failure Neurological Medical History: Denies: Hx Seizures Endocrine Medical History: Reports: Hx Hypothyroidism. Denies: Hx Diabetes Mellitus Type 1, Hx Hyperthyroidism Renal/ Medical History: Denies: Hx Peritoneal Dialysis GI Medical History: Denies: Hx Cirrhosis, Hx Crohn's Disease, Hx Hepatitis, Hx Ulcerative Colitis Musculoskeltal Medical History: Denies Hx Arthritis, Denies Hx Fibromyalgia Skin Medical History: Denies Hx Eczema, Denies Hx Psoriasis Psychiatric Medical History: Reports: Hx Bipolar Disorder, Hx Depression Infectious Medical History: Denies: Hx Hepatitis Past Surgical History: Reports: Hx Orthopedic Surgery - R arm ORIF Physical Exam - Vital signs Vitals: Temp Pulse Resp BP Pulse Ox 98.2 F 120 H 16 126/82 H 96 10/01/19 12:14 10/01/19 12:14 10/01/19 12:14 10/01/19 12:14 10/01/19 12:14 Course - Vital Signs Vital signs: Temp Pulse Resp BP Pulse Ox 98.2 F 120 H 16 126/82 H 96 10/01/19 12:14 10/01/19 12:14 10/01/19 12:14 10/01/19 12:14 10/01/19 12:14
[2019-10-01 13:37] LABS: ABSOLUTE BASOPHILS # (AUTO) 0.1 10^3/uL (0.0-0.2); ABSOLUTE EOSINOPHILS # (AUTO) 0.1 10^3/uL (0.0-0.6); ABSOLUTE LYMPHOCYTES (AUTO) 2.1 10^3/uL (0.5-4.7); ABSOLUTE MONOCYTES (AUTO) 0.5 10^3/uL (0.1-1.4); ABSOLUTE NEUT (AUTO) 6.1 10^3/uL (1.7-8.2); BASOPHILS % (AUTO) 0.6 % (0-2); EOSINOPHILS % (AUTO) 1.7 % (0-6); HEMATOCRIT 36.8 % (36.0-47.0); HEMOGLOBIN 12.9 g/dL (12.0-15.5); LYMPHOCYTES % (AUTO) 23.9 % (13-45); MEAN CORPUSCULAR HEMOGLOBIN 29.6 pg (27.0-33.4); MEAN CORPUSCULAR HGB CONC 34.9 g/dL (32.0-36.0); MEAN CORPUSCULAR VOLUME 85 fl (80-97); MONOCYTES % (AUTO) 5.4 % (3-13); PLATELET COUNT 293 10^3/uL (150-450); RED BLOOD COUNT 4.34 10^6/uL (3.72-5.28); RED CELL DISTRIBUTION WIDTH 14.2 % (11.5-14.0); SEGMENTED NEUTROPHILS % (AUTO) 68.4 % (42-78); TOTAL CELLS COUNTED % (AUTO) 100 %; WHITE BLOOD COUNT 8.9 10^3/uL (4.0-10.5)
[2019-10-01 13:45] LABS: APPEARANCE,URINE CLOUDY; BILIRUBIN,URINE NEGATIVE (NEGATIVE); GLUCOSE, URINE NEGATIVE (NEGATIVE); KETONES,URINE TRACE mg/dL (NEGATIVE); LEUKOCYTE ESTERASE,URINE MODERATE (NEGATIVE); NITRITE,URINE NEGATIVE (NEGATIVE); PROTEIN,URINE 100 mg/dL (NEGATIVE); URINE SPECIFIC GRAVITY 1.029
[2019-10-01 13:49] LABS: COLOR,URINE DARK YELLOW
[2019-10-01 13:55] LABS: ALBUMIN 4.5 g/dL (3.5-5.0); ALKALINE PHOSPHATASE 80 U/L (38-126); ANION GAP 11 (5-19); ASPARTATE AMINO TRANSFERASE 19 U/L (14-36); BILIRUBIN,DIRECT 0.2 mg/dL (0.0-0.4); BILIRUBIN,TOTAL 0.5 mg/dL (0.2-1.3); BLOOD UREA NITROGEN 6 mg/dL (7-20); CALCIUM 9.5 mg/dL (8.4-10.2); CARBON DIOXIDE 27 mmol/L (22-30); CHLORIDE 104 mmol/L (98-107); GLUCOSE 91 mg/dL (75-110); POTASSIUM 3.6 mmol/L (3.6-5.0); TOTAL PROTEIN 8.3 g/dL (6.3-8.2)
[2019-10-01] MEDS ORDERED: CEFTRIAXONE 1 GM/D5W RTU 1 GM/50 ML RTUPB IV ONE (13:57)
[2019-10-01] MEDS ORDERED: VANCOMYCIN HCL INJ 1000 MG VIAL IV ONE (13:57)
--- NOTE | 2019-10-01 14:53 | ER Document Report ---
ED General - General Chief Complaint: Hand Swelling Stated Complaint: LEFT HAND SWOLLEN Time Seen by Provider: 10/01/19 12:46 Mode of Arrival: Ambulatory Notes: 23 year old female presents to the ED complaining of a swollen right hand after injecting Suboxone into her right hand 3 days ago. Patient states she was seen in the emergency department and started on Keflex yesterday, states she did start taking the Keflex yesterday, states that the redness has more than tripled in size, is progressing proximally past her wrist, is associated with pain but denies numbness or tingling. Denies any discharge. Last injected Suboxone 3 days ago, injected methamphetamine into another area today. Denies any chest pain or trouble breathing. TRAVEL OUTSIDE OF THE [place] IN LAST 30 DAYS: No - Related Data Allergies/Adverse Reactions: Sulfa (Sulfonamide Antibiotics) Allergy (Verified 09/29/19 17:45) Past Medical History - General Information source: Patient - Social History Smoking Status: Current Every Day Smoker Frequency of alcohol use: None Drug Abuse: Methamphetamine, Other - suboxone Family History: CAD, DM, Hypertension, Malignancy, Other - Significant history of mental illness Patient has suicidal ideation: No Patient has homicidal ideation: No - Past Medical History Cardiac Medical History: Denies: Hx Coronary Artery Disease, Hx DVT, Hx Hypertension, Hx Pulmonary Embolism Pulmonary Medical History: Reports: Hx Pneumonia Denies: Hx Asthma, Hx COPD, Hx Respiratory Failure Neurological Medical History: Denies: Hx Seizures Endocrine Medical History: Reports: Hx Hypothyroidism. Denies: Hx Diabetes Mellitus Type 1, Hx Hyperthyroidism Renal/ Medical History: Denies: Hx Peritoneal Dialysis GI Medical History: Denies: Hx Cirrhosis, Hx Crohn's Disease, Hx Hepatitis, Hx Ulcerative Colitis Musculoskeletal Medical History: Denies Hx Arthritis, Denies Hx Fibromyalgia Skin Medical History: Denies Hx Eczema, Denies Hx Psoriasis Psychiatric Medical History: Reports: Hx Bipolar Disorder, Hx Depression Infectious Medical History: Denies: Hx Hepatitis Past Surgical History: Reports: Hx Orthopedic Surgery - R arm ORIF Review of Systems - Review of Systems Constitutional: Chills - when she stops using suboxone EENT: No symptoms reported Cardiovascular: No symptoms reported Musculoskeletal: See HPI Skin: See HPI -: Yes All other systems reviewed and negative Physical Exam - Vital signs Vitals: Temp Pulse Resp BP Pulse Ox 98.2 F 120 H 16 126/82 H 96 10/01/19 12:14 10/01/19 12:14 10/01/19 12:14 10/01/19 12:14 10/01/19 12:14 Interpretation: Tachycardic - Notes Notes: GENERAL: Alert, interacts well. No acute distress. HEAD: Normocephalic, atraumatic EYES: Pupils equal, round and reactive to light, extraocular movements intact. ENT: Oral mucosa moist, tongue midline. NECK: Full range of motion, supple, trachea midline. LUNGS: Clear to auscultation bilaterally, no wheezes, rales or rhonchi, no respiratory distress. HEART: Regular rate and rhythm, no murmurs, gallops, rubs. ABDOMEN: Soft, nontender, nondistended, bowel sounds present in all 4 quadrants. EXTREMITIES: Moves all 4 extremities spontaneously, radial pulses 2/4 bilaterally. No cyanosis. NEUROLOGICAL: Alert and oriented x3, normal speech, biceps and patellar DTRs 2+ bilaterally. PSYCH: Normal mood, normal affect. SKIN: Right hand, dorsal aspect is red, hot, swollen, tender to palpation, no fluctuance, erythema and swelling extends from PIP joint to approximately 2 cm proximal to the right wrist, all of this is on the dorsal aspect, patient is able to flex and extend all of her fingers although she has pain with fully extending all of her fingers. Able to flex and extend the wrist without any difficulty. Course - Re-evaluation Re-evalutation: 10/01/19 14:56 CBC unremarkable, CMP unremarkable, urinalysis shows negative test, denies dysuria despite moderate leukocyte esterase. Likely contamination Discussed patient with Dr. Lauren, accepts the patient to his service for failure of outpatient therapy, started on vancomycin and Rocephin. - Vital Signs Vital signs: Temp Pulse Resp BP Pulse Ox 98.2 F 120 H 16 126/82 H 96 10/01/19 12:14 10/01/19 12:14 10/01/19 12:14 10/01/19 12:14 10/01/19 12:14 - Laboratory Result Diagrams: 10/01/19 13:05 10/01/19 13:05 Laboratory results interpreted by me: 10/01/19 10/01/19 10/01/19 13:05 13:05 13:05 RDW 14.2 H BUN 6 L Total Protein 8.3 H Urine Protein 100 H Urine Ketones TRACE H Urine Urobilinogen 2.0 H Ur Leukocyte Esterase MODERATE H Discharge - Discharge Clinical Impression: Cellulitis of right hand, Substance abuse Condition: Good Disposition: ADMITTED INPATIENT Admitting Provider: Xin (Hospitalist) Unit Admitted: Medical Floor
[2019-10-01] MEDS ORDERED: TEMAZEPAM 7.5 MG CAPSULE PO PRN (15:30)
[2019-10-01] MEDS ORDERED: PROMETHAZINE HCL INJ 25 MG/1 ML VIAL IV PRN (15:30)
[2019-10-01] MEDS ORDERED: IPRATROPIUM/ALBUTEROL 0.5-2.5 MG/3 ML AMPUL NEB PRN (15:30)
[2019-10-01] MEDS ORDERED: ACETAMINOPHEN 325 MG TABLET PO PRN (15:30)
[2019-10-01] MEDS ORDERED: MAGNESIUM HYDROXIDE SUSP 30 ML UDCUP PO PRN (15:30)
[2019-10-01] MEDS ORDERED: ONDANSETRON HCL INJ/PF 4 MG/2 ML SDV IV PRN (15:30)
[2019-10-01] MEDS ORDERED: VANCOMYCIN HCL 0 MG in DEXTROSE 5%-WATER 250 ML IV NR (15:45)
--- NOTE | 2019-10-01 15:50 | PDOC H&P ---
History of Present Illness Admission Date/PCP: 10/01/19 15:04 GAYLE NAVARRETE MD History of Present Illness: MARLEE HOUGH is a 23 year old female A0 with past medical history of bipolar depression, anxiety, former IV drug abuser who has been sober for the last 2 years, unfortunately restarted about 2 months ago. For the last 2 months she has been using methamphetamine and Suboxone injections, presented to ED 2 days ago for right hand dorsal aspect erythema, swelling and tenderness was sent home on Keflex. Today she is present back to ED stating that not only her pain and swelling did not improve but she has noticed that the erythema on dorsal aspect of the right hand has progressed proximally involving the entire dorsal aspect of the right hand. She is also complaining of being anxious, having pressure-like substernal chest pain, but denies any shortness of breath, fever, chills, nausea, vomiting, diarrhea, constipation, dysuria, hematuria urgency or frequency. Last Suboxone injection was 3 days ago, last methamphetamine use was this morning. Past Medical History Cardiac Medical History: Denies: Coronary Artery Disease, DVT, Hypertension, Pulmonary Embolism Pulmonary Medical History: Reports: Pneumonia Denies: Asthma, Chronic Obstructive Pulmonary Disease (COPD), Respiratory Failure Neurological Medical History: Denies: Seizures Endocrine Medical History: Reports: Hypothyroidism Denies: Diabetes Mellitus Type 1, Hyperthyroidism GI Medical History: Denies: Cirrhosis, Crohn's Disease, Hepatitis, Ulcerative Colitis Musculoskeltal Medical History: Denies: Arthritis, Fibromyalgia Skin Medical History: Denies: Eczema, Psoriasis Psychiatric Medical History: Reports: Bipolar Disorder, Depression Hematology: Denies: Anemia, Bleeding Tendencies Past Surgical History Past Surgical History: Reports: Orthopedic Surgery - R arm ORIF Social History Smoking Status: Current Every Day Smoker Frequency of Alcohol Use: None Hx Recreational Drug Use: Yes Drugs: Cocaine, Marijuana Hx Prescription Drug Abuse: No Family History Family History: CAD, DM, Hypertension, Malignancy, Other - Significant history of mental illness Parental Family History Reviewed: Yes Children Family History Reviewed: Yes Sibling(s) Family History Reviewed.: Yes Medication/Allergy Home Medications: Buspirone HCl [Buspar 10 mg Tablet] 10 mg PO Q12 10/01/19 Cariprazine HCl [Vraylar] 3 mg PO QHS 10/01/19 Citalopram Hydrobromide [Celexa 20 mg Tablet] 20 mg PO QHS 10/01/19 Lamotrigine 200 mg PO QHS 10/01/19 Metformin HCl 500 mg PO BID 10/01/19 Allergies/Adverse Reactions: Sulfa (Sulfonamide Antibiotics) Allergy (Verified 09/29/19 17:45) Review of Systems Review of Systems: as per hpi Physical Exam Vital Signs: Temp Pulse Resp BP Pulse Ox 98.2 F 120 H 14 111/76 100 10/01/19 12:14 10/01/19 12:14 10/01/19 15:01 10/01/19 15:00 10/01/19 15:01 Intake & Output 09/30/19 10/01/19 10/02/19 06:59 06:59 06:59 Intake Total 50 Balance 50 Weight 75.5 kg General appearance: PRESENT: no acute distress, well-developed, well-nourished Head exam: PRESENT: atraumatic, normocephalic Respiratory exam: PRESENT: clear to auscultation charito. ABSENT: rales, rhonchi, wheezes Cardiovascular exam: PRESENT: RRR. ABSENT: diastolic murmur, rubs, systolic murmur GI/Abdominal exam: PRESENT: normal bowel sounds, soft. ABSENT: distended, guarding, mass, organolmegaly, rebound, tenderness Neurological exam: PRESENT: alert, awake, oriented to person, oriented to place, oriented to time, oriented to situation, CN II-XII grossly intact. ABSENT: motor sensory deficit Skin exam: PRESENT: other - Right hand dorsal aspect diffuse swelling, erythema, tenderness, extending proximally, no fluid collection, fluctuance or any discharge. Neurovascularly intact. Results Laboratory Results: 10/01/19 13:05 10/01/19 13:05 10/01/19 10/01/19 10/01/19 13:05 13:05 13:05 WBC 8.9 RBC 4.34 Hgb 12.9 Hct 36.8 MCV 85 MCH 29.6 MCHC 34.9 RDW 14.2 H Plt Count 293 Seg Neutrophils % 68.4 Sodium 142.2 Potassium 3.6 Chloride 104 Carbon Dioxide 27 Anion Gap 11 BUN 6 L Creatinine 0.56 Est GFR ( Amer) > 60 Glucose 91 Calcium 9.5 Total Bilirubin 0.5 AST 19 Alkaline Phosphatase 80 Total Protein 8.3 H Albumin 4.5 Urine Color DARK YELLOW Urine Appearance CLOUDY Urine pH 6.0 Ur Specific [place] 1.029 Urine Protein 100 H Urine Glucose (UA) NEGATIVE Urine Ketones TRACE H Urine Blood NEGATIVE Urine Nitrite NEGATIVE Ur Leukocyte Esterase MODERATE H Urine WBC (Auto) 30 Urine RBC (Auto) 3 Assessment and Plan - Diagnosis (1) Cellulitis of right hand Is this a current diagnosis for this admission?: Yes Plan: Right hand cellulitis due to substance abuse. Failed outpatient p.o. antibiotics. Admit to floor, empiric broad-spectrum IV antibiotics, blood culture, ESR, CRP. (2) Bipolar depression Is this a current diagnosis for this admission?: Yes Plan: Alert and oriented x4. Does not appear to be responding to any internal stimuli. Denies any suicidal ideation, homicidal ideation. Restart home meds. Outpatient PCP and psychiatry follow-up. (3) Anxiety Is this a current diagnosis for this admission?: Yes Plan: Takes BuSpar at home. Restart BuSpar. PRN benzodiazepines. Monitor for respiratory depression and falls. (4) Chest pain Is this a current diagnosis for this admission?: Yes Plan: Substernal pressure-like chest pain. Likely due to anxiety or low likelihood of underlying CAD, however cannot rule out NSTEMI given underlying methamphetamine abuse. Admit to telemetry, check troponins, EKG, sublingual nitroglycerin, IV morphine. (5) Substance abuse Is this a current diagnosis for this admission?: Yes Plan: Endorses history of Suboxone and methamphetamine abuse. Counseled on quitting. Monitor for withdrawals. (6) UTI (urinary tract infection) Qualifiers: Urinary tract infection type: acute cystitis Is this a current diagnosis for this admission?: Yes Plan: Likely due to gram-negative rods including E. coli. Empiric IV antibiotics. Urine culture.
[2019-10-01] MEDS ORDERED: HYDRALAZINE HCL INJ/PF 20 MG/1 ML SDV IV PRN (15:51)
[2019-10-01] MEDS ORDERED: NITROGLYCERIN 0.4 MG/TAB 25 TAB/BOTTLE SL PRN (15:52)
[2019-10-01] MEDS ORDERED: LORAZEPAM INJ 2 MG/1 ML VIAL IV ONE (16:00)
[2019-10-01] MEDS: DOCUSATE SODIUM 100 MG CAPSULE PO SCH (17:49)
[2019-10-01] MEDS: LORAZEPAM INJ 2 MG/1 ML VIAL IV PRN ×2 (18:20→22:29)
[2019-10-01] MEDS: MORPHINE SULFATE 10 MG/ML INJ IV PRN (20:12)
[2019-10-01] MEDS ORDERED: DIPHENHYDRAMINE HCL 25 MG CAPSULE PO ONE (21:30)
[2019-10-01] MEDS: FAMOTIDINE 20 MG TABLET PO SCH (21:45)
[2019-10-01] MEDS: BUSPIRONE HCL 10 MG TABLET PO SCH (21:47)
[2019-10-01] MEDS: CITALOPRAM HYDROBROMIDE 20 MG TABLET PO SCH (21:47)
[2019-10-01] MEDS: LAMOTRIGINE 100 MG TABLET PO SCH (21:47)
[2019-10-01] MEDS: VANCOMYCIN HCL 1,000 MG in DEXTROSE 5%-WATER 250 ML IV SCH (21:48)
[2019-10-01] MEDS ORDERED: (PENDING PHARMACY ID) (Cariprazine Hcl [Vraylar] 3 MG) PO SCH (22:00)
[2019-10-02] MEDS: LORAZEPAM INJ 2 MG/1 ML VIAL IV PRN ×6 (00:29→21:18)
[2019-10-02] MEDS: VANCOMYCIN HCL 1,000 MG in DEXTROSE 5%-WATER 250 ML IV SCH ×3 (05:36→21:58)
[2019-10-02] MEDS: MORPHINE SULFATE 10 MG/ML INJ IV PRN ×3 (05:36→21:18)
[2019-10-02 06:07] LABS: ABSOLUTE EOSINOPHILS # (AUTO) 0.3 10^3/uL (0.0-0.6); ABSOLUTE LYMPHOCYTES (AUTO) 2.4 10^3/uL (0.5-4.7); ABSOLUTE MONOCYTES (AUTO) 0.6 10^3/uL (0.1-1.4); ABSOLUTE NEUT (AUTO) 3.6 10^3/uL (1.7-8.2); BASOPHILS % (AUTO) 0.3 % (0-2); EOSINOPHILS % (AUTO) 4.2 % (0-6); LYMPHOCYTES % (AUTO) 34.3 % (13-45); MEAN CORPUSCULAR HGB CONC 35.2 g/dL (32.0-36.0); MEAN CORPUSCULAR VOLUME 85 fl (80-97); MONOCYTES % (AUTO) 9.1 % (3-13); PLATELET COUNT 246 10^3/uL (150-450); RED BLOOD COUNT 3.99 10^6/uL (3.72-5.28); RED CELL DISTRIBUTION WIDTH 14.1 % (11.5-14.0); SEGMENTED NEUTROPHILS % (AUTO) 52.1 % (42-78); TOTAL CELLS COUNTED % (AUTO) 100 %; WHITE BLOOD COUNT 6.9 10^3/uL (4.0-10.5)
[2019-10-02 06:33] LABS: ALBUMIN 3.7 g/dL (3.5-5.0); ALKALINE PHOSPHATASE 60 U/L (38-126); ANION GAP 6 (5-19); ASPARTATE AMINO TRANSFERASE 16 U/L (14-36); BILIRUBIN,TOTAL 0.4 mg/dL (0.2-1.3); BLOOD UREA NITROGEN 5 mg/dL (7-20); CALCIUM 8.8 mg/dL (8.4-10.2); CARBON DIOXIDE 27 mmol/L (22-30); CHLORIDE 105 mmol/L (98-107); GLUCOSE 78 mg/dL (75-110); TOTAL PROTEIN 6.8 g/dL (6.3-8.2)
[2019-10-02 08:45] LABS: URINE BARBITURATES SCREEN NEGATIVE; URINE BENZODIAZEPINES SCREEN NEGATIVE; URINE MARIJUANA (THC) SCREEN NEGATIVE; URINE METHADONE SCREEN NEGATIVE; URINE PHENCYCLIDINE SCREEN NEGATIVE
[2019-10-02 09:08] LABS: URINE COCAINE SCREEN UNCONFIRMED POSITIVE
[2019-10-02] MEDS: BUSPIRONE HCL 10 MG TABLET PO SCH ×2 (10:09→21:18)
[2019-10-02] MEDS: FAMOTIDINE 20 MG TABLET PO SCH ×2 (10:09→21:18)
[2019-10-02] MEDS: CEFTRIAXONE 1 GM/D5W RTU 1 GM/50 ML RTUPB IV SCH (10:10)
[2019-10-02] MEDS: ENOXAPARIN SODIUM INJ 40 MG/0.4 ML DISP.SYRIN SUBCUT SCH (10:10)
[2019-10-02] MEDS: DOCUSATE SODIUM 100 MG CAPSULE PO SCH ×2 (10:12→17:22)
--- NOTE | 2019-10-02 10:15 | PDOC PROGRESS REPORT ---
Subjective Progress Note for:: 10/02/19 Subjective:: MARLEE HOUGH is a 23 year old female A0 with past medical history of bipolar depression, anxiety, former IV drug abuser who has been sober for the last 2 years, unfortunately restarted about 2 months ago. For the last 2 months she has been using methamphetamine and Suboxone injections, presented to ED 2 days ago for right hand dorsal aspect erythema, swelling and tenderness was sent home on Keflex. Today she is present back to ED stating that not only her pain and swelling did not improve but she has noticed that the erythema on dorsal aspect of the right hand has progressed proximally involving the entire dorsal aspect of the right hand. She is also complaining of being anxious, having pressure-like substernal chest pain, but denies any shortness of breath, fever, chills, nausea, vomiting, diarrhea, constipation, dysuria, hematuria urgency or frequency. Last Suboxone injection was 3 days ago, last methamphetamine use was this morning. 10/02/2019. No acute events overnight. Right hand swelling and erythema improving, complaining of feeling itchy all over, denies any fever, chills, nausea, vomiting, diarrhea, constipation or any urinary symptoms. Reason For Visit: CELLULITIS, IV DRUG ABUSE,UTI Physical Exam Vital Signs: Temp Pulse Resp BP Pulse Ox 97.7 F 90 16 127/79 H 100 10/02/19 08:00 10/02/19 08:00 10/02/19 08:00 10/02/19 08:00 10/02/19 08:00 Intake & Output 10/01/19 10/02/19 10/03/19 06:59 06:59 06:59 Intake Total 300 Balance 300 Weight 77.9 kg General appearance: PRESENT: no acute distress, well-developed, well-nourished Head exam: PRESENT: atraumatic, normocephalic Respiratory exam: PRESENT: clear to auscultation charito. ABSENT: rales, rhonchi, wheezes Cardiovascular exam: PRESENT: RRR. ABSENT: diastolic murmur, rubs, systolic murmur Pulses: PRESENT: normal dorsalis pedis pul GI/Abdominal exam: PRESENT: normal bowel sounds, soft. ABSENT: distended, guarding, mass, organolmegaly, rebound, tenderness Extremities exam: PRESENT: full ROM. ABSENT: calf tenderness, clubbing, pedal edema Neurological exam: PRESENT: alert, awake, oriented to person, oriented to place, oriented to time, oriented to situation, CN II-XII grossly intact. ABSENT: motor sensory deficit Skin exam: PRESENT: other - Right hand dorsal aspect erythema improving, 2 x 2 centimeter, diffuse swelling,no collection, no drainage, neurovascularly intact. Results Laboratory Results: 10/02/19 05:28 10/02/19 05:28 10/01/19 10/01/19 10/01/19 13:05 13:05 13:05 WBC 8.9 RBC 4.34 Hgb 12.9 Hct 36.8 MCV 85 MCH 29.6 MCHC 34.9 RDW 14.2 H Plt Count 293 Seg Neutrophils % 68.4 Sodium 142.2 Potassium 3.6 Chloride 104 Carbon Dioxide 27 Anion Gap 11 BUN 6 L Creatinine 0.56 Est GFR ( Amer) > 60 Glucose 91 Calcium 9.5 Magnesium Total Bilirubin 0.5 AST 19 Alkaline Phosphatase 80 C-Reactive Protein Total Protein 8.3 H Albumin 4.5 Urine Color DARK YELLOW Urine Appearance CLOUDY Urine pH 6.0 Ur Specific [place] 1.029 Urine Protein 100 H Urine Glucose (UA) NEGATIVE Urine Ketones TRACE H Urine Blood NEGATIVE Urine Nitrite NEGATIVE Ur Leukocyte Esterase MODERATE H Urine WBC (Auto) 30 Urine RBC (Auto) 3 10/01/19 10/02/19 10/02/19 13:05 05:28 05:28 WBC 6.9 RBC 3.99 Hgb 12.0 Hct 34.0 L MCV 85 MCH 30.0 MCHC 35.2 RDW 14.1 H Plt Count 246 Seg Neutrophils % 52.1 Sodium 138.4 Potassium 4.0 Chloride 105 Carbon Dioxide 27 Anion Gap 6 BUN 5 L Creatinine 0.66 Est GFR ( Amer) > 60 Glucose 78 Calcium 8.8 Magnesium 2.3 Total Bilirubin 0.4 AST 16 Alkaline Phosphatase 60 C-Reactive Protein 12.1 H Total Protein 6.8 Albumin 3.7 Urine Color Urine Appearance Urine pH Ur Specific [place] Urine Protein Urine Glucose (UA) Urine Ketones Urine Blood Urine Nitrite Ur Leukocyte Esterase Urine WBC (Auto) Urine RBC (Auto) 10/01/19 18:00 Troponin I < 0.012 Assessment and Plan - Diagnosis (1) Cellulitis of right hand Is this a current diagnosis for this admission?: Yes Plan: Right hand cellulitis due to substance abuse. Failed outpatient p.o. antibiotics. ESR CRP elevated. Continue empiric broad-spectrum IV antibiotics, blood culture. (2) Bipolar depression Is this a current diagnosis for this admission?: Yes Plan: Alert and oriented x4. Does not appear to be responding to any internal stimuli. Denies any suicidal ideation, homicidal ideation. Restart home meds. Outpatient PCP and psychiatry follow-up. (3) Anxiety Is this a current diagnosis for this admission?: Yes Plan: Takes BuSpar at home. Restart BuSpar. PRN benzodiazepines. Monitor for respiratory depression and falls. (4) Chest pain Is this a current diagnosis for this admission?: Yes Plan: Resolved. Was complaining of substernal pressure-like chest pain on admission Likely due to anxiety. Troponins is negative. EKG sinus rhythm. (5) Substance abuse Is this a current diagnosis for this admission?: Yes Plan: Endorses history of Suboxone and methamphetamine abuse. Counseled on quitting. Monitor for withdrawals. (6) UTI (urinary tract infection) Qualifiers: Urinary tract infection type: acute cystitis Is this a current diagnosis for this admission?: Yes Plan: Likely due to gram-negative rods including E. coli. Empiric IV antibiotics. Urine culture.
[2019-10-02] MEDS: DIPHENHYDRAMINE HCL 50 MG/ML VIAL IV PRN ×2 (10:51→18:57)
--- NOTE | 2019-10-02 14:36 | EKG REPORT ---
SEVERITY:- NORMAL ECG - SINUS RHYTHM : Confirmed by: Mariel Reyes MD 02-Oct-2019 14:34:57
[2019-10-02] MEDS: CITALOPRAM HYDROBROMIDE 20 MG TABLET PO SCH (21:17)
[2019-10-02] MEDS: LAMOTRIGINE 100 MG TABLET PO SCH (21:18)
[2019-10-02 22:15] LABS: VANCOMYCIN,TROUGH 12.7 ug/mL (5.0-20.0)
[2019-10-03] MEDS: LORAZEPAM INJ 2 MG/1 ML VIAL IV PRN ×5 (01:26→22:13)
[2019-10-03] MEDS: MORPHINE SULFATE 10 MG/ML INJ IV PRN ×5 (01:26→23:02)
[2019-10-03] MEDS: DIPHENHYDRAMINE HCL 50 MG/ML VIAL IV PRN ×3 (03:00→22:13)
[2019-10-03] MEDS: VANCOMYCIN HCL 1,000 MG in DEXTROSE 5%-WATER 250 ML IV SCH ×3 (06:06→22:13)
[2019-10-03] MEDS: DOCUSATE SODIUM 100 MG CAPSULE PO SCH ×2 (09:04→18:27)
[2019-10-03] MEDS: ENOXAPARIN SODIUM INJ 40 MG/0.4 ML DISP.SYRIN SUBCUT SCH (09:04)
[2019-10-03] MEDS: FAMOTIDINE 20 MG TABLET PO SCH ×2 (09:04→22:12)
[2019-10-03] MEDS: BUSPIRONE HCL 10 MG TABLET PO SCH ×2 (09:04→22:12)
[2019-10-03] MEDS: CEFTRIAXONE 1 GM/D5W RTU 1 GM/50 ML RTUPB IV SCH (09:06)
--- NOTE | 2019-10-03 11:47 | PDOC PROGRESS REPORT ---
Subjective Progress Note for:: 10/03/19 Subjective:: MARLEE HOUGH is a 23 year old female A0 with past medical history of bipolar depression, anxiety, former IV drug abuser who has been sober for the last 2 years, unfortunately restarted about 2 months ago. For the last 2 months she has been using methamphetamine and Suboxone injections, presented to ED 2 days ago for right hand dorsal aspect erythema, swelling and tenderness was sent home on Keflex. Today she is present back to ED stating that not only her pain and swelling did not improve but she has noticed that the erythema on dorsal aspect of the right hand has progressed proximally involving the entire dorsal aspect of the right hand. She is also complaining of being anxious, having pressure-like substernal chest pain, but denies any shortness of breath, fever, chills, nausea, vomiting, diarrhea, constipation, dysuria, hematuria urgency or frequency. Last Suboxone injection was 3 days ago, last methamphetamine use was this morning. 10/02/2019. No acute events overnight. Right hand swelling and erythema improving, complaining of feeling itchy all over, denies any fever, chills, nausea, vomiting, diarrhea, constipation or any urinary symptoms. 10/03/2019. No acute events overnight. Patient resting in bed sleeping, easily arousable, still complaining of right hand pain, improving compared to yesterday, denies any fever, chills, nausea, vomiting, diarrhea, constipation or any urinary symptoms. Reason For Visit: CELLULITIS, IV DRUG ABUSE,UTI Physical Exam Vital Signs: Temp Pulse Resp BP Pulse Ox 98.0 F 92 14 118/85 99 10/03/19 08:00 10/03/19 08:25 10/03/19 08:25 10/03/19 08:00 10/03/19 08:25 Intake & Output 10/02/19 10/03/19 10/04/19 06:59 06:59 06:59 Intake Total 300 1274 250 Output Total 600 Balance 300 674 250 Weight 77.9 kg 77.9 kg General appearance: PRESENT: no acute distress, well-developed, well-nourished Head exam: PRESENT: atraumatic, normocephalic Respiratory exam: PRESENT: clear to auscultation charito. ABSENT: rales, rhonchi, wheezes Cardiovascular exam: PRESENT: RRR. ABSENT: diastolic murmur, rubs, systolic murmur GI/Abdominal exam: PRESENT: normal bowel sounds, soft. ABSENT: distended, guarding, mass, organolmegaly, rebound, tenderness Neurological exam: PRESENT: alert, awake, oriented to person, oriented to place, oriented to time, oriented to situation, CN II-XII grossly intact. ABSENT: motor sensory deficit Skin exam: PRESENT: other - Right hand dorsal aspect 3 x 3 cm swelling, t enderness and erythema. No active discharge. Results Laboratory Results: 10/02/19 05:28 10/02/19 05:28 10/01/19 18:00 Troponin I < 0.012 Assessment and Plan - Diagnosis (1) Cellulitis of right hand Is this a current diagnosis for this admission?: Yes Plan: Generalized erythema and swelling improving, cellulitis more concentrated on the second and third carpals. Seems like like patient is developing a fluid collection on the posterior aspect of the right hand. Right hand cellulitis due to substance abuse. Failed outpatient p.o. antibiotics. ESR CRP elevated. Continue empiric broad-spectrum IV antibiotics, blood culture. Consult surgery for possible drainage. (2) Bipolar depression Is this a current diagnosis for this admission?: Yes Plan: Alert and oriented x4. Does not appear to be responding to any internal stimuli. Denies any suicidal ideation, homicidal ideation. Restart home meds. Outpatient PCP and psychiatry follow-up. (3) Anxiety Is this a current diagnosis for this admission?: Yes Plan: Takes BuSpar at home. Restart BuSpar. PRN benzodiazepines. Monitor for respiratory depression and falls. (4) Chest pain Is this a current diagnosis for this admission?: Yes Plan: Resolved. Was complaining of substernal pressure-like chest pain on admission Likely due to anxiety. Troponins is negative. EKG sinus rhythm. (5) Substance abuse Is this a current diagnosis for this admission?: Yes Plan: Endorses history of Suboxone and methamphetamine abuse. Counseled on quitting. Monitor for withdrawals. (6) UTI (urinary tract infection) Qualifiers: Urinary tract infection type: acute cystitis Is this a current diagnosis for this admission?: Yes Plan: Likely due to gram-negative rods including E. coli. Empiric IV antibiotics. Urine culture.
[2019-10-03] MEDS: CITALOPRAM HYDROBROMIDE 20 MG TABLET PO SCH (22:12)
[2019-10-03] MEDS: OXYCODONE-ACETAMINOPHEN 5-325 MG TABLET PO PRN (22:14)
[2019-10-03] MEDS: LAMOTRIGINE 100 MG TABLET PO SCH (22:16)
--- NOTE | 2019-10-04 06:42 | PDOC CONSULTATION ---
Consultation Consult Date: 10/03/19 Provider Consulted: SURGICAL SURGICALIST Consult reason:: right hand abscess History of Present Illness Admission Date/PCP: 10/01/19 15:04 GAYLE NAVARRETE MD History of Present Illness: MARLEE HOUGH is a 23 year old female with a 3-day history of right hand s welling, pain, and fluctuance on the dorsal aspect. Patient is seen in consultation at the request of the hospitalist service. The patient reports using intravenous drugs several days ago. The hand then became swollen and painful. She reports increasing redness and now fluctuance. She denies any purulent drainage. She denies fevers or chills. She rates her pain is 10 out of 10. It is sharp and stabbing. Nothing makes her pain better. Palpation and movement make it worse. She denies chest pain, shortness of breath, headache, dizziness, blurry vision, malaise, fatigue, orthostasis, rash, melena, hematochezia, hematemesis, abdominal pain, sore throat. Past Medical History Cardiac Medical History: Denies: Coronary Artery Disease, DVT, Hypertension, Pulmonary Embolism Pulmonary Medical History: Reports: Pneumonia Denies: Asthma, Chronic Obstructive Pulmonary Disease (COPD), Respiratory Failure Neurological Medical History: Denies: Seizures Endocrine Medical History: Reports: Hypothyroidism Denies: Diabetes Mellitus Type 1, Hyperthyroidism GI Medical History: Denies: Cirrhosis, Crohn's Disease, Hepatitis, Ulcerative Colitis Musculoskeltal Medical History: Denies: Arthritis, Fibromyalgia Skin Medical History: Denies: Eczema, Psoriasis Psychiatric Medical History: Reports: Bipolar Disorder, Depression, Substance Abuse Hematology: Denies: Anemia, Bleeding Tendencies Past Surgical History Past Surgical History: Reports: Orthopedic Surgery - R arm ORIF Social History Smoking Status: Former Smoker Frequency of Alcohol Use: None Hx Recreational Drug Use: Yes Drugs: Cocaine, Other Hx Prescription Drug Abuse: No Family History Family History: CAD, DM, Hypertension, Malignancy, Other - Significant history of mental illness Parental Family History Reviewed: Yes Children Family History Reviewed: Yes Sibling(s) Family History Reviewed.: Yes Medication/Allergy Home Medications: Buspirone HCl [Buspar 10 mg Tablet] 10 mg PO Q12 10/01/19 Cariprazine HCl [Vraylar] 3 mg PO QHS 10/01/19 Citalopram Hydrobromide [Celexa 20 mg Tablet] 20 mg PO QHS 10/01/19 Lamotrigine 200 mg PO QHS 10/01/19 Metformin HCl 500 mg PO BID 10/01/19 Allergies/Adverse Reactions: Sulfa (Sulfonamide Antibiotics) Allergy (Verified 09/29/19 17:45) Review of Systems Constitutional: ABSENT: anorexia, chills, fatigue Eyes: ABSENT: visual disturbances Ears: ABSENT: hearing changes Nose, Mouth, and Throat: ABSENT: mouth pain, sore throat Cardiovascular: ABSENT: chest pain Respiratory: ABSENT: cough Gastrointestinal: ABSENT: abdominal pain, bloating, nausea, vomiting Genitourinary: ABSENT: dysuria Musculoskeletal: ABSENT: back pain Integumentary: PRESENT: other - Right hand swelling and pain, dorsal aspect. Neurological: ABSENT: confusion, convulsions, dizziness Psychiatric: PRESENT: anxiety Endocrine: ABSENT: cold intolerance, heat intolerance Hematologic/Lymphatic: ABSENT: easy bleeding, easy bruising Physical Exam Vital Signs: Temp Pulse Resp BP Pulse Ox 98.4 F 85 16 105/58 L 100 10/03/19 16:00 10/03/19 16:00 10/03/19 16:00 10/03/19 16:00 10/03/19 16:00 Intake & Output 10/02/19 10/03/19 10/04/19 06:59 06:59 06:59 Intake Total 300 1274 1050 Output Total 600 Balance 647 804 0970 Weight 77.9 kg 77.9 kg General appearance: PRESENT: no acute distress, cooperative Head exam: PRESENT: atraumatic, normocephalic Eye exam: PRESENT: EOMI, PERRLA. ABSENT: scleral icterus Mouth exam: PRESENT: moist, neck supple Neck exam: ABSENT: meningismus, tenderness, thyromegaly, tracheal deviation Respiratory exam: PRESENT: unlabored. ABSENT: chest wall tenderness, tachypnea Cardiovascular exam: ABSENT: tachycardia Pulses: PRESENT: normal radial pulses GI/Abdominal exam: PRESENT: soft. ABSENT: distended, tenderness Rectal exam: PRESENT: deferred Extremities exam: ABSENT: clubbing Musculoskeletal exam: ABSENT: deformity Neurological exam: PRESENT: alert, awake, oriented to person, oriented to place, oriented to time, oriented to situation, CN II-XII grossly intact Psychiatric exam: PRESENT: agitated, anxious. ABSENT: depressed Focused psych exam: ABSENT: delusional Skin exam: PRESENT: other - Fluctuant abscess cavity to the right hand, dorsal aspect. There is erythema and tenderness to palpation. There is no purulent drainage. Results Laboratory Results: 10/02/19 05:28 10/02/19 05:28 10/01/19 13:05 Clean Catch Midstream Urine Culture - Final C.albicans/C.dubliniensis 10/01/19 18:00 Troponin I < 0.012 Assessment & Plan - Diagnosis (1) Abscess of right hand Is this a current diagnosis for this admission?: Yes - Plan Summary Plan Summary: This is a 23-year-old female with an abscess to the dorsal aspect of the right hand. The patient has been receiving antibiotics without improvement. She has an obvious fluctuant area, consistent with abscess. I have recommended incision and drainage as definitive treatment. The patient has requested bedside drainage. I will perform local I&D at the bedside. Risks/benefits discussed, informed consent obtained, and all questions answered.
--- NOTE | 2019-10-04 06:45 | Operative Report ---
Nonrecallable Operative Report DATE OF SURGERY: 10/03/19 PREOPERATIVE DIAGNOSIS: Right hand abscess, dorsal aspect POSTOPERATIVE DIAGNOSIS: Same as above OPERATION: Incision and drainage of right hand abscess. SURGEON: EDITA LOPEZ ANESTHESIA: Local TISSUE REMOVED OR ALTERED: None COMPLICATIONS: None apparent ESTIMATED BLOOD LOSS: Minimal PROCEDURE: Drains/implants: 4 x 4 gauze. Procedure in detail: After informed consent was obtained, the patient was laid in the supine position in the hospital room. The area of the right dorsal hand was prepped and draped in a normal sterile fashion. 1% lidocaine was used to infiltrate the skin of the right hand. A small incision was created over the fluctuant area using 11 blade scalpel. The abscess cavity was entered. A small to moderate amount of purulent material was expressed from the abscess cavity. The wound was irrigated and cleaned. There was some bleeding in the area, therefore the wound was packed with a 4 x 4 gauze, and a pressure dressing was applied using Coban. After the dressing was applied, the procedure was concluded. All sponge, instrument, and needle counts were correct x2. Condition: Stable.
[2019-10-04] MEDS: VANCOMYCIN HCL 1,000 MG in DEXTROSE 5%-WATER 250 ML IV SCH ×3 (06:51→22:06)
[2019-10-04] MEDS: MORPHINE SULFATE 10 MG/ML INJ IV PRN (09:24)
[2019-10-04] MEDS: DOCUSATE SODIUM 100 MG CAPSULE PO SCH ×2 (09:26→17:00)
[2019-10-04] MEDS: FAMOTIDINE 20 MG TABLET PO SCH ×2 (09:27→22:06)
[2019-10-04] MEDS: BUSPIRONE HCL 10 MG TABLET PO SCH ×2 (09:27→22:06)
[2019-10-04] MEDS: CEFTRIAXONE 1 GM/D5W RTU 1 GM/50 ML RTUPB IV SCH (09:27)
[2019-10-04] MEDS: ENOXAPARIN SODIUM INJ 40 MG/0.4 ML DISP.SYRIN SUBCUT SCH (09:34)
[2019-10-04] MEDS: OXYCODONE-ACETAMINOPHEN 5-325 MG TABLET PO PRN ×2 (09:59→14:04)
[2019-10-04] MEDS: LORAZEPAM INJ 2 MG/1 ML VIAL IV PRN (11:17)
--- NOTE | 2019-10-04 12:49 | PDOC PROGRESS REPORT ---
Subjective Progress Note for:: 10/04/19 Subjective:: It is along the left hand IND site Reason For Visit: CELLULITIS, IV DRUG ABUSE,UTI Physical Exam Vital Signs: Temp Pulse Resp BP Pulse Ox 98.7 F 91 22 H 104/47 L 100 10/04/19 11:40 10/04/19 11:40 10/04/19 11:40 10/04/19 11:40 10/04/19 11:40 Intake & Output 10/03/19 10/04/19 10/05/19 06:59 06:59 06:59 Intake Total 1274 1870 300 Output Total 600 800 Balance 674 1070 300 Weight 77.9 kg 77.9 kg Exam: Packing from the wound removed. No bleeding noted and no drainage noted. There is just about a less than 1 cm long incision site and no inflammation noted at this time. Results Laboratory Results: 10/02/19 05:28 10/02/19 05:28 10/01/19 13:05 Clean Catch Midstream Urine Culture - Final C.albicans/C.dubliniensis 10/01/19 18:00 Troponin I < 0.012 Assessment & Plan - Time Critical Time spent with patient: 15-24 minutes - Plan Summary Plan Summary: 23-year-old female IV drug abuser noted to have an abscess on the dorsum of the right hand. This was drained at bedside under local anesthesia by Dr. Sky on 10/03/2019. Today 10/04/2019 wound looks good packing was removed and redressed with a sterile 4 x 4. Dressing can just be changed once a day and in the next 24 to 48hours Band-Aid dressing will likely be sufficient. Patient can be discharged from the surgical viewpoint. Okay to give p.o. antibiotic for the next 5 to 7 days. We can follow her in the surgical clinic in 1 to 2 weeks on as needed basis she can have pain medicine in the form of Toradol 30 mg every 6 hours as needed for pain.
[2019-10-04] MEDS ORDERED: LORAZEPAM INJ 2 MG/1 ML VIAL IV PRN (13:27)
--- NOTE | 2019-10-04 13:37 | PDOC PROGRESS REPORT ---
Subjective Progress Note for:: 10/04/19 Subjective:: MARLEE HOUGH is a 23 year old female A0 with past medical history of bipolar depression, anxiety, former IV drug abuser who has been sober for the last 2 years, unfortunately restarted about 2 months ago. For the last 2 months she has been using methamphetamine and Suboxone injections, presented to ED 2 days ago for right hand dorsal aspect erythema, swelling and tenderness was sent home on Keflex. Today she is present back to ED stating that not only her pain and swelling did not improve but she has noticed that the erythema on dorsal aspect of the right hand has progressed proximally involving the entire dorsal aspect of the right hand. She is also complaining of being anxious, having pressure-like substernal chest pain, but denies any shortness of breath, fever, chills, nausea, vomiting, diarrhea, constipation, dysuria, hematuria urgency or frequency. Last Suboxone injection was 3 days ago, last methamphetamine use was this morning. 10/02/2019. No acute events overnight. Right hand swelling and erythema improving, complaining of feeling itchy all over, denies any fever, chills, nausea, vomiting, diarrhea, constipation or any urinary symptoms. 10/03/2019. No acute events overnight. Patient resting in bed sleeping, easily arousable, still complaining of right hand pain, improving compared to yesterday, denies any fever, chills, nausea, vomiting, diarrhea, constipation or any urinary symptoms. 10/04/2019. Patient is status post bedside I&D of dorsal right hand but unfortunately no sample was sent to culture, patient reporting mild improvement of right hand pain, WBC WNL, patient is afebrile, patient has history of IV drug abuse and narcotic seeking behavior and unfortunately is not very consistent in reporting her pain, she reports pain of 5/5 but then resolved with Ativan. Patient's wound looks clean, she does not have any leukocytosis, and is afebrile, the family still complaining of pain, has had bedside I&D but unf ortunately no culture available will observe today continuing vancomycin and ceftriaxone and switch to p.o. antibiotics tomorrow and DC home. Patient denies any shortness of breath, fever, chills, nausea, vomiting, diarrhea, constipation or any urinary symptoms. Reason For Visit: CELLULITIS, IV DRUG ABUSE,UTI Physical Exam Vital Signs: Temp Pulse Resp BP Pulse Ox 98.7 F 91 22 H 104/47 L 100 10/04/19 11:40 10/04/19 11:40 10/04/19 11:40 10/04/19 11:40 10/04/19 11:40 Intake & Output 10/03/19 10/04/19 10/05/19 06:59 06:59 06:59 Intake Total 1274 1870 300 Output Total 600 800 Balance 674 1070 300 Weight 77.9 kg 77.9 kg General appearance: PRESENT: no acute distress, well-developed, well-nourished Head exam: PRESENT: atraumatic, normocephalic Respiratory exam: PRESENT: clear to auscultation charito. ABSENT: rales, rhonchi, wheezes Cardiovascular exam: PRESENT: RRR. ABSENT: diastolic murmur, rubs, systolic murmur Pulses: PRESENT: normal dorsalis pedis pul Extremities exam: PRESENT: full ROM. ABSENT: calf tenderness, clubbing, pedal edema Musculoskeletal exam: PRESENT: other - Right hand dorsal aspect status post I&D, wound clean, no discharge Neurological exam: PRESENT: alert, awake, oriented to person, oriented to place, oriented to time, oriented to situation, CN II-XII grossly intact. ABSENT: motor sensory deficit Results Laboratory Results: 10/02/19 05:28 10/02/19 05:28 10/01/19 13:05 Clean Catch Midstream Urine Culture - Final C.albicans/C.dubliniensis 10/01/19 18:00 Troponin I < 0.012 Assessment and Plan - Diagnosis (1) Cellulitis of right hand Is this a current diagnosis for this admission?: Yes Plan: Right hand dorsum cellulitis/abscess due to substance abuse. Status post I&D 10/03/2019. Failed outpatient p.o. antibiotics. ESR CRP elevated on admission. Unfortunately no sample was sent to culture. Continue empiric broad-spectrum IV antibiotics, blood culture. Switch to p.o. antibiotics tomorrow and DC home to follow-up with surgery clinic as outpatient. (2) Bipolar depression Is this a current diagnosis for this admission?: Yes Plan: Alert and oriented x4. Does not appear to be responding to any internal stimuli. Denies any suicidal ideation, homicidal ideation. Restart home meds. Outpatient PCP and psychiatry follow-up. (3) Anxiety Is this a current diagnosis for this admission?: Yes Plan: Takes BuSpar at home. Patient constantly asking for Ativan. Restart BuSpar. PRN benzodiazepines. Monitor for respiratory depression and falls. (4) Chest pain Is this a current diagnosis for this admission?: Yes Plan: Resolved. Was complaining of substernal pressure-like chest pain on admission Likely due to anxiety. Troponins is negative. EKG sinus rhythm. (5) Substance abuse Is this a current diagnosis for this admission?: Yes Plan: Endorses history of Suboxone and methamphetamine abuse. Counseled on quitting. Monitor for withdrawals. (6) UTI (urinary tract infection) Qualifiers: Urinary tract infection type: acute cystitis Is this a current diagnosis for this admission?: Yes Plan: Culture negative except for Elli albicans likely contaminant. Already receiving empiric IV antibiotics for right hand cellulitis.
[2019-10-04] MEDS: DIPHENHYDRAMINE HCL 50 MG/ML VIAL IV PRN ×2 (14:14→22:06)
[2019-10-04] MEDS: CITALOPRAM HYDROBROMIDE 20 MG TABLET PO SCH (22:06)
[2019-10-04] MEDS: LAMOTRIGINE 100 MG TABLET PO SCH (22:06)
[2019-10-05] MEDS: VANCOMYCIN HCL 1,000 MG in DEXTROSE 5%-WATER 250 ML IV SCH (05:29)
[2019-10-05 08:40] VITALS: BP 111/70
--- NOTE | 2019-10-06 16:14 | PDOC DISCHARGE SUMMARY ---
Impression - Admit/DC Date/PCP Admission Date/Primary Care Provider: 10/01/19 15:04 GAYLE NAVARRETE MD Discharge Date: 10/05/19 - Discharge Diagnosis (1) Abscess of right hand Is this a current diagnosis for this admission?: Yes (2) Cellulitis of right hand Is this a current diagnosis for this admission?: Yes (3) Bipolar depression Is this a current diagnosis for this admission?: Yes (4) Anxiety Is this a current diagnosis for this admission?: Yes (5) Chest pain Is this a current diagnosis for this admission?: Yes (6) Substance abuse Is this a current diagnosis for this admission?: Yes (7) UTI (urinary tract infection) Is this a current diagnosis for this admission?: Yes - Additional Information Discharge Diet: As Tolerated Discharge Activity: Activity As Tolerated Referrals: [facility] [Provider Group] - 10/16/19 9:15 am Prescriptions: Clindamycin HCl 300 mg PO TID 7 Days #21 capsule Home Medications: Buspirone HCl [Buspar 10 mg Tablet] 10 mg PO Q12 10/01/19 Cariprazine HCl [Vraylar] 3 mg PO QHS 10/01/19 Citalopram Hydrobromide [Celexa 20 mg Tablet] 20 mg PO QHS 10/01/19 Lamotrigine 200 mg PO QHS 10/01/19 Metformin HCl 500 mg PO BID 10/01/19 Clindamycin HCl 300 mg PO TID 7 Days #21 capsule 10/05/19 History of Present Illiness History of Present Illness: MARLEE HOUGH is a 23 year old female A0 with past medical history of bip olar depression, anxiety, former IV drug abuser who has been sober for the last 2 years, unfortunately restarted about 2 months ago. For the last 2 months she has been using methamphetamine and Suboxone injections, presented to ED 2 days ago for right hand dorsal aspect erythema, swelling and tenderness was sent home on Keflex. Today she is present back to ED stating that not only her pain and swelling did not improve but she has noticed that the erythema on dorsal aspect of the right hand has progressed proximally involving the entire dorsal aspect of the right hand. She is also complaining of being anxious, having pressure-like substernal chest pain, but denies any shortness of breath, fever, chills, nausea, vomiting, diarrhea, constipation, dysuria, hematuria urgency or frequency. Last Suboxone injection was 3 days ago, last methamphetamine use was this morning. Hospital Course Hospital Course: (1) Abscess of right hand Right hand dorsum cellulitis/abscess due to substance abuse. Status post I&D 10/03/2019. Failed outpatient p.o. antibiotics. ESR CRP elevated on admission. Received 5 days of IV vancomycin and ceftriaxone. Surgery consulted. Patient had an I&D on 10/03/2019. Unfortunately no sample was sent to culture. Was discharged on clindamycin p.o. 300 mg 3 times daily for another 7 days. Was asked to follow-up with PCP and at the surgical clinic with Dr. Sky. (2) Cellulitis of right hand As per #1. (3) Bipolar depression Alert and oriented x4. Did not not appear to be responding to any internal stimuli. Denies any suicidal ideation, homicidal ideation. Restarted home meds. Outpatient PCP and psychiatry follow-up. (4) Anxiety Takes BuSpar at home. Patient constantly asking for Ativan. Restarted BuSpar. PRN benzodiazepines. Monitored for respiratory depression and falls. Outpatient PCP and psychiatry follow-up recommended. (5) Chest pain Resolved. Was complaining of substernal pressure-like chest pain on admission Likely due to anxiety. Troponins negative. EKG sinus rhythm. (6) Substance abuse Endorses history of Suboxone and methamphetamine abuse. Counseled on quitting. No sign of withdrawal during hospitalization. (7) UTI (urinary tract infection) Culture negative except for Elli albicans likely contaminant. Already on empiric IV antibiotics for cellulitis/abscess of the right hand. Physical Exam Vital Signs: Temp Pulse Resp BP Pulse Ox 98.6 F 89 14 111/70 99 10/05/19 08:38 10/05/19 08:38 10/05/19 08:38 10/05/19 08:38 10/05/19 08:38 Intake & Output 10/05/19 10/06/19 10/07/19 06:59 06:59 06:59 Intake Total 2240 Balance 2240 Weight 73.4 kg General appearance: PRESENT: no acute distress, well-developed, well-nourished Head exam: PRESENT: atraumatic, normocephalic Respiratory exam: PRESENT: clear to auscultation charito. ABSENT: rales, rhonchi, wheezes Cardiovascular exam: PRESENT: RRR. ABSENT: diastolic murmur, rubs, systolic murmur GI/Abdominal exam: PRESENT: normal bowel sounds, soft. ABSENT: distended, guarding, mass, organolmegaly, rebound, tenderness Extremities exam: PRESENT: full ROM, other - Right hand dorsum wound looks clean, no sign of discharge, no erythema, no tenderness. Neurovascularly intact.. ABSENT: calf tenderness, clubbing, pedal edema Neurological exam: PRESENT: alert, awake, oriented to person, oriented to place, oriented to time, oriented to situation, CN II-XII grossly intact. ABSENT: motor sensory deficit Results Laboratory Results: WBC 6.9 10^3/uL (4.0-10.5) 10/02/19 05:28 RBC 3.99 10^6/uL (3.72-5.28) 10/02/19 05:28 Hgb 12.0 g/dL (12.0-15.5) 10/02/19 05:28 Hct 34.0 % (36.0-47.0) L 10/02/19 05:28 MCV 85 fl (80-97) 10/02/19 05:28 MCH 30.0 pg (27.0-33.4) 10/02/19 05:28 MCHC 35.2 g/dL (32.0-36.0) 10/02/19 05:28 RDW 14.1 % (11.5-14.0) H 10/02/19 05:28 Plt Count 246 10^3/uL (150-450) 10/02/19 05:28 Lymph % (Auto) 34.3 % (13-45) 10/02/19 05:28 Bullock % (Auto) 9.1 % (3-13) 10/02/19 05:28 Eos % (Auto) 4.2 % (0-6) 10/02/19 05:28 Baso % (Auto) 0.3 % (0-2) 10/02/19 05:28 Absolute Neuts (auto) 3.6 10^3/uL (1.7-8.2) 10/02/19 05:28 Absolute Lymphs (auto) 2.4 10^3/uL (0.5-4.7) 10/02/19 05:28 Absolute Monos (auto) 0.6 10^3/uL (0.1-1.4) 10/02/19 05:28 Absolute Eos (auto) 0.3 10^3/uL (0.0-0.6) 10/02/19 05:28 Absolute Basos (auto) 0.0 10^3/uL (0.0-0.2) 10/02/19 05:28 Seg Neutrophils % 52.1 % (42-78) 10/02/19 05:28 ESR 40 mm/hr (0-20) H 10/01/19 13:05 Sodium 138.4 mmol/L (137-145) 10/02/19 05:28 Potassium 4.0 mmol/L (3.6-5.0) 10/02/19 05:28 Chloride 105 mmol/L (98-107) 10/02/19 05:28 Carbon Dioxide 27 mmol/L (22-30) 10/02/19 05:28 Anion Gap 6 (5-19) 10/02/19 05:28 BUN 5 mg/dL (7-20) L 10/02/19 05:28 Creatinine 0.66 mg/dL (0.52-1.25) 10/02/19 05:28 Est GFR ( Amer) > 60 (>60) 10/02/19 05:28 Est GFR (MDRD) Non-Af > 60 (>60) 10/02/19 05:28 Glucose 78 mg/dL (75-110) 10/02/19 05:28 Calcium 8.8 mg/dL (8.4-10.2) 10/02/19 05:28 Magnesium 2.3 mg/dL (1.6-2.3) 10/02/19 05:28 Total Bilirubin 0.4 mg/dL (0.2-1.3) 10/02/19 05:28 Direct Bilirubin 0.0 mg/dL (0.0-0.4) 10/02/19 05:28 Neonat Total Bilirubin Not Reportable 10/02/19 05:28 Neonat Direct Bilirubin Not Reportable 10/02/19 05:28 Neonat Indirect Bili Not Reportable 10/02/19 05:28 AST 16 U/L (14-36) 10/02/19 05:28 ALT 12 U/L (<35) 10/02/19 05:28 Alkaline Phosphatase 60 U/L (38-126) 10/02/19 05:28 Troponin I < 0.012 ng/mL 10/01/19 18:00 C-Reactive Protein 12.1 mg/L (<10.0) H 10/01/19 13:05 Total Protein 6.8 g/dL (6.3-8.2) 10/02/19 05:28 Albumin 3.7 g/dL (3.5-5.0) 10/02/19 05:28 Urine Color DARK YELLOW 10/01/19 13:05 Urine Appearance CLOUDY 10/01/19 13:05 Urine pH 6.0 (5.0-9.0) 10/01/19 13:05 Ur Specific Kingsley 1.029 10/01/19 13:05 Urine Protein 100 mg/dL (NEGATIVE) H 10/01/19 13:05 Urine Glucose (UA) NEGATIVE mg/dL (NEGATIVE) 10/01/19 13:05 Urine Ketones TRACE mg/dL (NEGATIVE) H 10/01/19 13:05 Urine Blood NEGATIVE (NEGATIVE) 10/01/19 13:05 Urine Nitrite NEGATIVE (NEGATIVE) 10/01/19 13:05 Urine Bilirubin NEGATIVE (NEGATIVE) 10/01/19 13:05 Urine Urobilinogen 2.0 mg/dL (<2.0) H 10/01/19 13:05 Ur Leukocyte Esterase MODERATE (NEGATIVE) H 10/01/19 13:05 Urine WBC (Auto) 30 /HPF 10/01/19 13:05 Urine RBC (Auto) 3 /HPF 10/01/19 13:05 Squamous Epi Cells Auto 27 /HPF 10/01/19 13:05 Urine Mucus (Auto) MANY /LPF 10/01/19 13:05 Urine Ascorbic Acid NEGATIVE (NEGATIVE) 10/01/19 13:05 Urine HCG, Qual NEGATIVE (NEGATIVE) 10/01/19 13:05 Time Trough Drawn 214010/02/19 21:41 Vancomycin Trough 12.7 ug/mL (5.0-20.0) 10/02/19 21:41 Urine Opiates Screen NEGATIVE 10/01/19 13:05 Urine Methadone Screen NEGATIVE 10/01/19 13:05 Ur Barbiturates Screen NEGATIVE 10/01/19 13:05 Ur Phencyclidine Scrn NEGATIVE 10/01/19 13:05 Ur Amphetamines Screen 10/01/19 13:05 U Benzodiazepines Scrn NEGATIVE 10/01/19 13:05 Urine Cocaine Screen UNCONFIRMED POSITIVE 10/01/19 13:05 U Marijuana (THC) Screen NEGATIVE 10/01/19 13:05 10/01/19 18:00 Troponin I < 0.012 Stroke Is this a Stroke Patient?: No Acute Heart Failure - Is this a Heart Failure Patient?: No
== END 2019-10-05 10:09 | disposition home or self-care (01) | DRG 603 ==
LOC: EEVIPCON 11:30 → ER 11:30 → EEVIPCON 15:04 → EH 15:04 → 4N 16:41
PROVIDERS: ADMIT Internal Medicine; ATTEND Internal Medicine
PROC: 0J9J3ZX Drainage of Right Hand Subcutaneous Tissue and Fascia, Percutaneous Approach, Diagnostic (ICD-10-PCS; principal; 2019-10-03)
DX: L02.511 Cutaneous abscess of right hand (principal); L03.113 Cellulitis of right upper limb; F31.30 Bipolar disorder, current episode depressed, mild or moderate severity, unspecified; N30.01 Acute cystitis with hematuria; F41.9 Anxiety disorder, unspecified; F19.10 Other psychoactive substance abuse, uncomplicated; E03.9 Hypothyroidism, unspecified; F15.11 Other stimulant abuse, in remission; F17.210 Nicotine dependence, cigarettes, uncomplicated; Z79.899 Other long term (current) drug therapy; Z88.2 Allergy status to sulfonamides
CPT/HCPCS: 36415; 80053; 80202; 80307; 81001; 81025; 83735; 84484; 85025; 85652; 86140; 87040; 87086; 93005; 93010; 96365; 99284; J0696; J1200; J1650; J2060; J2270; J3370; J3490; J7060; J7620

== ENCOUNTER 2019-10-13 19:16 | Emergency (ER) | payer MEDICAID ==
[2019-10-13 20:38] LABS: ABSOLUTE BASOPHILS # (AUTO) 0.1 10^3/uL (0.0-0.2); ABSOLUTE EOSINOPHILS # (AUTO) 0.4 10^3/uL (0.0-0.6); ABSOLUTE LYMPHOCYTES (AUTO) 3.5 10^3/uL (0.5-4.7); ABSOLUTE MONOCYTES (AUTO) 0.8 10^3/uL (0.1-1.4); ABSOLUTE NEUT (AUTO) 4.2 10^3/uL (1.7-8.2); BASOPHILS % (AUTO) 0.9 % (0-2); EOSINOPHILS % (AUTO) 4.5 % (0-6); HEMATOCRIT 36.3 % (36.0-47.0); HEMOGLOBIN 12.8 g/dL (12.0-15.5); LYMPHOCYTES % (AUTO) 38.8 % (13-45); MEAN CORPUSCULAR HEMOGLOBIN 30.1 pg (27.0-33.4); MEAN CORPUSCULAR HGB CONC 35.2 g/dL (32.0-36.0); MEAN CORPUSCULAR VOLUME 86 fl (80-97); MONOCYTES % (AUTO) 8.5 % (3-13); RED BLOOD COUNT 4.24 10^6/uL (3.72-5.28); RED CELL DISTRIBUTION WIDTH 13.9 % (11.5-14.0); SEGMENTED NEUTROPHILS % (AUTO) 47.3 % (42-78); TOTAL CELLS COUNTED % (AUTO) 100 %; WHITE BLOOD COUNT 8.9 10^3/uL (4.0-10.5)
[2019-10-13 20:56] LABS: ALBUMIN 4.1 g/dL (3.5-5.0); ALKALINE PHOSPHATASE 69 U/L (38-126); ANION GAP 7 (5-19); ASPARTATE AMINO TRANSFERASE 23 U/L (14-36); BILIRUBIN,DIRECT 0.2 mg/dL (0.0-0.4); BILIRUBIN,TOTAL 0.5 mg/dL (0.2-1.3); BLOOD UREA NITROGEN 12 mg/dL (7-20); CALCIUM 9.2 mg/dL (8.4-10.2); CARBON DIOXIDE 29 mmol/L (22-30); CHLORIDE 104 mmol/L (98-107); POTASSIUM 4.3 mmol/L (3.6-5.0); TOTAL PROTEIN 7.6 g/dL (6.3-8.2)
[2019-10-13 20:58] LABS: GLUCOSE 67 mg/dL (75-110)
[2019-10-13 21:04] LABS: PLATELET COUNT 281 10^3/uL (150-450)
[2019-10-13 21:38] LABS: ACETAMINOPHEN < 10 ug/mL (10-30); ALCOHOL < 10 mg/dL (NONE DETECTED)
--- NOTE | 2019-10-13 22:11 | ER Document Report ---
Entered by LANI DANIEL SCRIBE 10/13/192112 Acting as scribe for:CALI CHAUHAN IV, MD ED General - General Chief Complaint: Numbness Stated Complaint: PSYCH EVALUATION Time Seen by Provider: 10/13/19 21:09 Primary Care Provider: GAYLE NAVARRETE MD [Primary Care Provider] - Follow up as needed Mode of Arrival: Ambulatory Information source: Patient, Emergency Med Personnel Notes: This 23 year old female patient with a history of substance use, depression, and bipolar disorder presents to the ED today from [place] with complaints of numbness and tingling to bilateral arms and legs. ED nurse reports that the staff at the facility sent her here because she was disoriented and hypotensive with a blood pressure of 93/50. ED nurse states that the patient reports that she used meth yesterday and heroin x2 days ago, but denies any substance abuse while at [place]. ED nurse reports that [facility] will accept the patient once she is medically cleared. TRAVEL OUTSIDE OF THE [place] IN LAST 30 DAYS: No - Related Data Allergies/Adverse Reactions: Sulfa (Sulfonamide Antibiotics) Allergy (Verified 09/29/19 17:45) Home Medications: lamictal, vraylar, metformin, cetirizine, celexa, Past Medical History - General Information source: Patient, Emergency Med Personnel - Social History Smoking Status: Never Smoker Cigarette use (# per day): No Chew tobacco use (# tins/day): No Smoking Education Provided: No Frequency of alcohol use: None Drug Abuse: Heroin, Methamphetamine Family History: Reviewed & Not Pertinent, CAD, DM, Hypertension, Malignancy, Other - Significant history of mental illness Patient has suicidal ideation: No Patient has homicidal ideation: No Pulmonary Medical History: Reports: Hx Pneumonia Endocrine Medical History: Reports: Hx Hypothyroidism Psychiatric Medical History: Reports: Hx Bipolar Disorder, Hx Depression Past Surgical History: Reports: Hx Orthopedic Surgery - R arm ORIF Physical Exam - Vital signs Vitals: Resp 28 H 10/13/19 19:31 Interpretation: Normal - General General appearance: Alert - HEENT Head: Normocephalic, Atraumatic Eyes: Normal Pupils: PERRL - Respiratory Respiratory status: No respiratory distress Chest status: Nontender Breath sounds: Normal Chest palpation: Normal - Cardiovascular Rhythm: Regular Heart sounds: Normal auscultation Murmur: No Friction rub: No Gallop: None auscultated - Abdominal Inspection: Normal Distension: No distension Bowel sounds: Normal Tenderness: Nontender - Abdomen soft Organomegaly: No organomegaly - Back Back: Normal, Nontender - Extremities General upper extremity: Normal inspection General lower extremity: Normal inspection - Neurological Neuro grossly intact: Yes - Psychological Associated symptoms: Normal affect, Normal mood - Skin Skin Temperature: Warm Skin Moisture: Dry Skin Color: Normal Course - Re-evaluation Re-evalutation: 10/13/19 23:54 Results of ED MSE discussed with patient. All questions were answered prior to discharge. Emergency signs and symptoms, reasons to return to the emergency department discussed with patient. Patient is medically cleared and is ready to be discharged back to [facility]. - Vital Signs Vital signs: Temp Pulse Resp BP Pulse Ox 98.6 F 18 100 10/13/19 19:40 10/13/19 22:00 10/13/19 22:00 - Laboratory Result Diagrams: 10/13/19 20:25 10/13/19 20:25 Laboratory results interpreted by me: 10/13/19 10/13/19 10/13/19 20:25 20:25 22:29 Glucose 67 L Urine Protein 30 H Urine Urobilinogen 2.0 H Salicylates 1.0 L Acetaminophen < 10 L Discharge - Discharge Clinical Impression: Transient alteration of awareness, Positive urine drug screen Clinical Impression: (Ruled Out): Positive urine culture Condition: Good Disposition: PSYCH HOSP/UNIT Additional Instructions: Return to the Emergency Department without delay if any worse. HOME CARE INSTRUCTIONS & INFORMATION: Thank you for choosing us for your medical needs. We hope you're satisfied with the care you received. After you l eave, you must properly care for your problem and, at the same time, observe its progress. Any condition can change. Some illnesses can change rapidly over hours or days. If your condition worsens, return to the Emergency Department or see your physician promptly. ABOUT YOUR X-RAYS AND EKG'S: If you had an EKG or X-rays taken, they have been read by the Emergency Physician. The X-rays and EKG's will also be read by a Radiologist or Contract Administration Coordinator within 24 hours. If discrepancies are noted, you will be notified by telephone. Please be certain the ED has a correct telephone number & address where you can be reached. Also, realize that some fractures or abnormalities do not show up on initial X-rays. If your symptoms continue, see your physician. ABOUT YOUR LABORATORY TEST: If you had laboratory tests, the results have been reviewed by the Emergency Physician. Some test results (for example cultures) may not be available for several days. You will be contacted if any test result shows you need additional treatment. Please be certain the ED has a correct telephone number and address where you can be reached. ABOUT YOUR MEDICATIONS: You will receive instructions on how to take your medicine on the prescription label you receive. Additional information may be provided by the Pharmacy. If you have questions afterwards, call the ED for clarification or further instructions. Some prescribed medications may cause drowsiness. Do not perform tasks such as driving a car or operating machinery without consulting your Pharmacist. If you feel you need a refill of pain medication, your condition will need re-evaluation. Please do not call for a refill of any medication. ABOUT YOUR SIGNATURE: Signature of this document acknowledges to followin. Understanding that you received emergency treatment and that you may be released before al medical problems are known or treated. Please be certain the ED has a correct phone number & address where you can be reached. 2. Acknowledgement that you will arrange for follow-up care as recommended. 3. Authorization for the Emergency Physician to provide information to your follow-up Physician in order to maximize your care. AT ANY TIME, IF YOUR SYMPTOMS CHANGE SIGNIFICANTLY OR WORSEN OR YOU DEVELOP NEW SYMPTOMS, RETURN TO THE EMERGENCY DEPARTMENT IMMEDIATELY FOR RE-EVALUATION. OUR GOAL IS TO PROVIDE EXCELLENT MEDICAL CARE! WE HOPE THAT WE HAVE MET YOUR EXPECTATIONS DURING YOUR EMERGENCY DEPARTMENT VISIT AND THAT YOU FEEL YOU HAVE RECEIVED EXCELLENT CARE! Referrals: GAYLE NAVARRETE MD [Primary Care Provider] - Follow up as needed I personally performed the services described in the documentation, reviewed and edited the documentation which was dictated to the scribe in my presence, and it accurately records my words and actions.
--- NOTE | 2019-10-13 22:57 | RADIOLOGY REPORT (SQ) ---
EXAM DESCRIPTION: Noncontrast CT head CLINICAL HISTORY: 23 years Female ams TECHNIQUE: Noncontrast CT head. All CT scans at this facility use dose modulation, iterative reconstruction, and/or weight based dosing when appropriate to reduce radiation dose to as low as reasonably achievable. COMPARISON: None. FINDINGS: Pierson matter, white matter, ventricles, and cisterns are within normal limits. No acute hemorrhage or mass effect. Visualized portions of paranasal sinuses and mastoids are clear. Visualized portions of the calvarium are within normal limits. IMPRESSION: 1. No acute intracranial findings. If there is clinical concern for acute intracranial process, such as stroke, MRI should be considered as a more sensitive evaluation.
[2019-10-13 23:03] LABS: APPEARANCE,URINE SLIGHTLY-CLOUDY; BILIRUBIN,URINE NEGATIVE (NEGATIVE); COLOR,URINE YELLOW; GLUCOSE, URINE NEGATIVE (NEGATIVE); KETONES,URINE NEGATIVE (NEGATIVE); LEUKOCYTE ESTERASE,URINE NEGATIVE (NEGATIVE); NITRITE,URINE NEGATIVE (NEGATIVE); PROTEIN,URINE 30 mg/dL (NEGATIVE); URINE SPECIFIC GRAVITY 1.032
[2019-10-13 23:22] LABS: URINE BARBITURATES SCREEN NEGATIVE; URINE BENZODIAZEPINES SCREEN NEGATIVE; URINE MARIJUANA (THC) SCREEN NEGATIVE; URINE METHADONE SCREEN NEGATIVE; URINE PHENCYCLIDINE SCREEN NEGATIVE
[2019-10-13 23:26] LABS: URINE COCAINE SCREEN UNCONFIRMED POSITIVE
[2019-10-14 00:45] VITALS: BP 99/53
--- NOTE | 2019-10-14 08:59 | EKG REPORT ---
SEVERITY:- BORDERLINE ECG - SINUS RHYTHM PROBABLE LEFT ATRIAL ABNORMALITY : Confirmed by: Chris Marquis MD 14-Oct-2019 08:58:46
== END 2019-10-14 00:45 ==
LOC: ER 19:16
DX: R40.4 Transient alteration of awareness (principal); R20.0 Anesthesia of skin; F31.9 Bipolar disorder, unspecified; Z88.2 Allergy status to sulfonamides
CPT/HCPCS: 36415; 70450; 80053; 80307; 81001; 82962; 85025; 93005; 93010; 99284

== ENCOUNTER 2019-12-21 20:10 | Emergency (ER) | payer MEDICAID ==
[2019-12-21 20:27] VITALS: BP 135/71
--- NOTE | 2019-12-21 20:30 | ER Document Report ---
HPI - HPI Patient complains to provider of: Urinary frequency and urgency Time Seen by Provider: 12/21/19 20:29 Onset: Just prior to arrival Onset/Duration: Sudden Quality of pain: No pain Pain Level: 3 Context: This 23-year-old female presented to the emergency department today with urinary frequency burning hesitancy which is been ongoing for about 7 days Associated Symptoms: None - REPRODUCTIVE Reproductive: DENIES: : Past Medical History - Social History Smoking Status: Never Smoker Frequency of alcohol use: None Drug Abuse: None Family History: Reviewed & Not Pertinent, CAD, DM, Hypertension, Malignancy, Other - Significant history of mental illness Patient has homicidal ideation: No - Past Medical History Cardiac Medical History: Denies: Hx Coronary Artery Disease, Hx DVT, Hx Hypertension, Hx Pulmonary Embolism Pulmonary Medical History: Reports: Hx Pneumonia Denies: Hx Asthma, Hx COPD, Hx Respiratory Failure Neurological Medical History: Denies: Hx Seizures Endocrine Medical History: Reports: Hx Hypothyroidism. Denies: Hx Diabetes Mellitus Type 1, Hx Hyperthyroidism Renal/ Medical History: Denies: Hx Peritoneal Dialysis GI Medical History: Denies: Hx Cirrhosis, Hx Crohn's Disease, Hx Hepatitis, Hx Ulcerative Colitis Musculoskeletal Medical History: Denies Hx Arthritis, Denies Hx Fibromyalgia Skin Medical History: Denies Hx Eczema, Denies Hx Psoriasis Psychiatric Medical History: Reports: Hx Bipolar Disorder, Hx Depression Infectious Medical History: Denies: Hx Hepatitis Past Surgical History: Reports: Hx Orthopedic Surgery - R arm ORIF Vertical Provider Document - CONSTITUTIONAL Agree With Documented VS: Yes - INFECTION CONTROL TRAVEL OUTSIDE OF THE [place] IN LAST 30 DAYS: No - HEENT HEENT: Atraumatic, Conjuctival Injection, Normocephalic, PERRLA - NECK Neck: Normal Inspection, Supple - RESPIRATORY Respiratory: Breath Sounds Normal - CARDIOVASCULAR Cardiovascular: Regular Rate, Regular Rhythm - GI/ABDOMEN Gastrointestinal: Abdomen Soft, Abdomen Non-Tender - REPRODUCTIVE Female Genitalia: Normal Inspection - BACK Back: Normal Inspection - MUSCULOSKELETAL/EXTREMETIES Musculoskeletal/Extremeties: MAEW - NEURO Level of Consciousness: Awake, Alert Motor/Sensory: No Motor Deficit - DERM Integumentary: Warm, Dry Course - Vital Signs Vital signs: Temp Pulse Resp BP Pulse Ox 98.5 F 84 16 135/71 H 100 12/21/19 20:18 12/21/19 20:15 12/21/19 20:15 12/21/19 20:15 12/21/19 20:15 - Laboratory Laboratory results interpreted by me: 12/21/19 21:01 Labs- All tests 24 hr 12/21/19 20:27 Urine Color YELLOW Urine Appearance SLIGHTLY-CLOUDY Urine pH 7.0 Ur Specific [place] 1.024 Urine Protein 30 H Urine Glucose (UA) NEGATIVE Urine Ketones NEGATIVE Urine Blood NEGATIVE Urine Nitrite NEGATIVE Urine Bilirubin NEGATIVE Urine Urobilinogen NEGATIVE Ur Leukocyte Esterase SMALL H Urine WBC (Auto) 6 Urine RBC (Auto) 1 Urine Bacteria (Auto) TRACE Squamous Epi Cells Auto 11 Urine Mucus (Auto) FEW Urine Ascorbic Acid NEGATIVE Urine HCG, Qual NEGATIVE Discharge - Discharge Clinical Impression: UTI (urinary tract infection) Qualifiers: Urinary tract infection type: acute cystitis Hematuria presence: without hematuria Qualified Code(s): N30.00 - Acute cystitis without hematuria Condition: Good Disposition: HOME, SELF-CARE Additional Instructions: Urinary Tract Infection Your evaluation indicates that you have a urinary tract infection. This is due to germs growing in the bladder. This is a common problem. This infection usually responds quickly to antibiotics. Your antibiotic should be taken exactly as prescribed. Drink plenty of fluids -- three to four quarts a day. Occasionally, a bladder anesthetic will be prescribed to help stop the feeling of urgency until the antibiotic has a chance to clear the infection. This may cause your urine to be dark orange. Certain urine infections require a culture. If the doctor obtained a culture, the results will be back in two days. You should call to see if a change in treatment is needed. A repeat urinalysis after you finish treatment is often recommended. The physician will let you know if further testing is required. Call the doctor if you develop fever, chills, flank pain, inability to urinate, or blood in the urine. Prescriptions: Nitrofurantoin Monohyd/M-Cryst [Macrobid 100 mg Capsule] 100 mg PO Q12 #20 cap Phenazopyridine HCl [Pyridium 200 mg Tablet] 200 mg PO TID #15 tablet Referrals: GAYLE NAVARRETE MD [Primary Care Provider] - Follow up as needed
[2019-12-21 20:58] LABS: APPEARANCE,URINE SLIGHTLY-CLOUDY; BILIRUBIN,URINE NEGATIVE (NEGATIVE); COLOR,URINE YELLOW; GLUCOSE, URINE NEGATIVE (NEGATIVE); KETONES,URINE NEGATIVE (NEGATIVE); LEUKOCYTE ESTERASE,URINE SMALL (NEGATIVE); NITRITE,URINE NEGATIVE (NEGATIVE); PROTEIN,URINE 30 mg/dL (NEGATIVE); URINE SPECIFIC GRAVITY 1.024; UROBILINOGEN,URINE NEGATIVE mg/dL (<2.0)
[2019-12-21] MEDS ORDERED: NITROFURANTOIN MONOHYD/M-CRYST 100 MG CAPSULE PO ONE (21:00)
[2019-12-21] MEDS ORDERED: PHENAZOPYRIDINE HCL 200 MG TABLET PO ONE (21:00)
== END 2019-12-21 21:23 | disposition home or self-care (01) ==
LOC: ER 20:10
DX: N30.00 Acute cystitis without hematuria (principal)
CPT/HCPCS: 99283; 81025; 81001; J3490 ×2; J8499

== ENCOUNTER 2019-12-31 03:49 | Emergency (ER) | payer MEDICAID ==
[2019-12-31] MEDS ORDERED: IBUPROFEN 800 MG TABLET PO ONE (04:13)
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
--- NOTE | 2019-12-31 04:50 | RADIOLOGY REPORT (SQ) ---
EXAM DESCRIPTION: XR HAND 3 OR MORE VIEWS, XR WRIST 3 OR MORE VIEWS COMPLETED DATE/TME: 12/31/2019 00:00 CLINICAL HISTORY: 24 years, Female, Right hand injury COMPARISON: 11/29/2019 bilateral hand NUMBER OF VIEWS: 3 views of the right hand and 3 views of the right wrist TECHNIQUE: Multiple views of the right hand and wrist LIMITATIONS: None. FINDINGS: Right wrist: Negative for acute fracture or dislocation. Soft tissues are unremarkable. Right hand: Flexed position of the digits. Mild dorsal soft tissue swelling. No acute fracture or dislocation. IMPRESSION: No acute osseous abnormality. Mild dorsal soft tissue swelling of the hand, improved from the prior. copyright 2010 [employer]- All Rights Reserved
[2019-12-31 05:52] VITALS: BP 140/64
== END 2019-12-31 05:40 | disposition home or self-care (01) ==
LOC: ER 03:49
DX: S60.221A Contusion of right hand, initial encounter (principal); M79.641 Pain in right hand; M25.531 Pain in right wrist; Y04.0XXA Assault by unarmed brawl or fight, initial encounter; Y93.89 Activity, other specified; Y92.009 Unspecified place in unspecified non-institutional (private) residence as the place of occurrence of the external cause; F15.10 Other stimulant abuse, uncomplicated; F41.9 Anxiety disorder, unspecified; Z88.2 Allergy status to sulfonamides; Z87.891 Personal history of nicotine dependence; Z32.02 Encounter for pregnancy test, result negative
CPT/HCPCS: 99283; 81025; 73130; 73110; J3490

== ENCOUNTER 2020-08-04 11:56 | Emergency (ER) | payer MEDICAID ==
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
[2020-08-04] MEDS ORDERED: NORMAL SALINE 1000 ML 1,000 ML IV ONE (13:30)
[2020-08-04] MEDS ORDERED: KETOROLAC TROMETHAMINE INJ/PF 30 MG/1 ML SDV IV ONE (13:30)
[2020-08-04] MEDS ORDERED: CLINDAMYCIN 900 MG/D5W RTU 900 MG/50 ML RTUPB IV ONE (13:30)
--- NOTE | 2020-08-04 13:34 | ER Document Report ---
ED Hand/Wrist Injury - General Chief Complaint: Hand Swelling Stated Complaint: LEFT HAND SWELLING Time Seen by Provider: 08/04/20 12:57 Primary Care Provider: MARCOS BAUER MD [COMMUNITY BASED STAFF] - Follow up as needed Mode of Arrival: Ambulatory Information source: Patient TRAVEL OUTSIDE OF THE [place] IN LAST 30 DAYS: No - HPI Patient complains to provider of: Left hand pain and redness Notes: Patient here with complaints of pain, redness and swelling to the left hand. The patient is an IV drug user and states that she injected meth into the proximal aspect of her left index finger last night. She believes that she missed. When she woke up this morning she has redness swelling and pain to the proximal left index finger as well as the dorsum of the left hand over the second metacarpal. She denies fevers. Pain is moderate, constant, worse with movement and palpation. Better with rest. She denies any chest pain or shortness of breath. No abdominal pain. No nausea, vomiting, diarrhea. No rash. No blurred or lost vision. No other specific complaints at this time. - Related Data Allergies/Adverse Reactions: Sulfa (Sulfonamide Antibiotics) Allergy (Verified 09/29/19 17:45) Past Medical History - General Information source: Patient - Social History Smoking Status: Never Smoker Frequency of alcohol use: None Drug Abuse: Methamphetamine Family History: Reviewed & Not Pertinent, CAD, DM, Hypertension, Malignancy, Other - Significant history of mental illness - Past Medical History Cardiac Medical History: Denies: Hx Coronary Artery Disease, Hx DVT, Hx Hypertension, Hx Pulmonary Embolism Pulmonary Medical History: Reports: Hx Pneumonia Denies: Hx Asthma, Hx COPD, Hx Respiratory Failure Neurological Medical History: Denies: Hx Seizures Endocrine Medical History: Reports: Hx Hypothyroidism. Denies: Hx Diabetes Mellitus Type 1, Hx Hyperthyroidism Renal/ Medical History: Denies: Hx Peritoneal Dialysis GI Medical History: Denies: Hx Cirrhosis, Hx Crohn's Disease, Hx Hepatitis, Hx Ulcerative Colitis Musculoskeletal Medical History: Denies Hx Arthritis, Denies Hx Fibromyalgia Skin Medical History: Denies Hx Eczema, Denies Hx Psoriasis Psychiatric Medical History: Reports: Hx Bipolar Disorder, Hx Depression Infectious Medical History: Denies: Hx Hepatitis Past Surgical History: Reports: Hx Orthopedic Surgery - R arm ORIF Review of Systems - Review of Systems -: Yes All other systems reviewed and negative Physical Exam - Vital signs Vitals: Temp Pulse Resp BP Pulse Ox 98.1 F 112 H 16 117/69 100 08/04/20 12:18 08/04/20 12:18 08/04/20 12:18 08/04/20 12:18 08/04/20 12:18 - Notes Notes: GENERAL: alert, cooperative, nontoxic, no distress. HEAD: normocephalic, atraumatic EYES: conjunctiva pink without discharge, no external redness or swelling. EARS: no external swelling, no external redness NOSE: atraumatic, no external swelling MOUTH/THROAT: mucous membranes moist and pink NECK: soft, supple, full range of motion, no meningismus. CHEST: no distress, lungs clear and equal throughout. No wheezing, rales, rhonchi. CARDIAC: regular rate and rhythm, no murmur EXTREMITIES: full range of motion of all extremities. Patient with mild swelling, redness and tenderness to the proximal left index finger as well as the dorsum of the hand over the second metacarpal. Swelling goes approximately long-term up the hand. Does not go past the wrist, no lymphangitic streaking up the arm. Normal cap refill and sensation distally. Full range of motion. Normal pulse. No drainable abscess. Patient also with a small reddened tender area to the left lateral antecubital area. No tenderness. No fluctuance or drainable abscess. NEURO: alert and oriented 3, no focal deficits, full range of motion of all extremities. PYSCH: appropriate mood, affect. Patient is cooperative. SKIN: pink, warm, dry, no rash. Track liu from IV drug use. Course - Re-evaluation Re-evalutation: 08/04/20 15:15 Patient resting comfortably at this time. I have gone over results with the patient. Questions have been answered. We will discharge home. 08/04/20 15:33 Patient is nontoxic-appearing with stable vitals. She is here with complaints of left hand pain, redness, swelling. The patient injects methamphetamines. She states that she missed while injecting into her index finger last evening. When she woke up this morning, she had redness, swelling and pain to this area. She denies fevers. On exam she is noted to have some mild redness swelling and tenderness to the dorsum of the left proximal index finger and the distal aspect of the second metatarsal of the hand. She has full flexion and extension. No sign of tenosynovitis. Neurovascular she is intact. No sign of necrotizing fasciitis. He did not palpate any drainable abscess at this time. Patient had lab work done which shows a normal white count of 6. Lactic acid is normal at 0.9. AST and ALT are minimally elevated at 57 and 47 respectively. This is likely secondary to her IV drug use. No abdominal pain at this time. Initial heart rate was minimally elevated. Patient will be given IV fluids and will re assess. She is afebrile, and not hypotensive. X-ray of the left hand shows no foreign body with soft tissue swelling. Overall the patient looks well. Patient was given a dose of IV clindamycin. At this point I do believe the patient is safe for discharge home and an outpatient trial of clindamycin. She is instructed to follow-up if this does not improve in the next 48 hours, follow-up sooner for worsening pain, high fever, persistent vomiting, significantly spreading redness, numbness, tingling, weakness, or any further concerns. The patient's emergency department workup and current diagnosis were explained to the patient and or family. Follow-up instructions were provided. Medicati ons if prescribed were discussed. Instructions for when to return to the emergency department including specific worrisome symptoms were discussed with the patient and/or family. - Vital Signs Vital signs: Temp Pulse Resp BP Pulse Ox 98.1 F 112 H 16 117/69 100 08/04/20 12:18 08/04/20 12:18 08/04/20 12:18 08/04/20 12:18 08/04/20 12:18 - Laboratory Results Result Diagrams: 08/04/20 13:50 08/04/20 13:50 Laboratory Results Interpreted: 08/04/20 08/04/20 13:09 13:50 AST 57 H ALT 47 H Total Protein 8.5 H Urine Protein 100 H Urine Ketones 80 H Urine Blood MODERATE H Urine Urobilinogen 2.0 H Ur Leukocyte Esterase SMALL H Critical Laboratory Results Reviewed: No Critical Results - Radiology Results Critical Radiology Results Reviewed: No Critical Results Discharge - Discharge Clinical Impression: Cellulitis of left hand, Amphetamine abuse, Elevated liver enzymes Condition: Stable Disposition: HOME, SELF-CARE Instructions: Cellulitis ([facility]), Ampetamine Abuse ([facility]) Additional Instructions: Take medications as prescribed. May take 600 mg of ibuprofen every 6 hours as needed for pain. Apply warm compresses to the sore area. Follow-up if redness and swelling have not improved in the next 48 hours. Follow-up sooner for significantly worsening pain, high fever, significantly spreading redness, persistent vomiting, or for any further concerns. Your liver enzymes were minimally elevated today, this needs to be rechecked with your doctor as an outpatient. Prescriptions: Clindamycin HCl 300 mg PO QID #40 capsule Referrals: MARCOS BAUER MD [COMMUNITY BASED STAFF] - Follow up as needed
[2020-08-04 13:37] LABS: APPEARANCE,URINE SLIGHTLY-CLOUDY; BILIRUBIN,URINE NEGATIVE (NEGATIVE); COLOR,URINE AMBER; GLUCOSE, URINE NEGATIVE (NEGATIVE); KETONES,URINE 80 mg/dL (NEGATIVE); LEUKOCYTE ESTERASE,URINE SMALL (NEGATIVE); NITRITE,URINE NEGATIVE (NEGATIVE); PROTEIN,URINE 100 mg/dL (NEGATIVE)
--- NOTE | 2020-08-04 13:49 | RADIOLOGY REPORT (SQ) ---
EXAM DESCRIPTION: HAND LEFT 3 VIEWS IMAGES COMPLETED DATE/TIME: 08/04/2020 1:36 pm REASON FOR STUDY: pain swelling redness to left hand after meth COMPARISON: None. EXAM PARAMETERS: NUMBER OF VIEWS: Three views. TECHNIQUE: AP, lateral and oblique radiographic images acquired of the left hand. LIMITATIONS: None. FINDINGS: MINERALIZATION: Normal. BONES: No acute fracture or dislocation. No worrisome bone lesions. JOINTS: No effusions. SOFT TISSUES: There is soft tissue swelling dorsally. OTHER: No other significant finding. IMPRESSION: Soft tissue swelling dorsally. No foreign body. No fracture. TECHNICAL DOCUMENTATION: JOB ID: [id number] 2010 [employer]- All Rights Reserved Reading location - IP/workstation name: [email or web address]
[2020-08-04 14:10] LABS: ABSOLUTE EOSINOPHILS # (AUTO) 0.1 10^3/uL (0.0-0.6); ABSOLUTE MONOCYTES (AUTO) 0.4 10^3/uL (0.1-1.4); ABSOLUTE NEUT (AUTO) 3.6 10^3/uL (1.7-8.2); BASOPHILS % (AUTO) 0.7 % (0-2); EOSINOPHILS % (AUTO) 1.8 % (0-6); HEMATOCRIT 43.3 % (36.0-47.0); MEAN CORPUSCULAR HEMOGLOBIN 29.3 pg (27.0-33.4); MEAN CORPUSCULAR HGB CONC 34.6 g/dL (32.0-36.0); MEAN CORPUSCULAR VOLUME 85 fl (80-97); MONOCYTES % (AUTO) 6.4 % (3-13); PLATELET COUNT 230 10^3/uL (150-450); RED BLOOD COUNT 5.11 10^6/uL (3.72-5.28); RED CELL DISTRIBUTION WIDTH 12.3 % (11.5-14.0); SEGMENTED NEUTROPHILS % (AUTO) 58.1 % (42-78); TOTAL CELLS COUNTED % (AUTO) 100 %; WHITE BLOOD COUNT 6.1 10^3/uL (4.0-10.5)
[2020-08-04 14:32] LABS: ALBUMIN 4.7 g/dL (3.5-5.0); ALKALINE PHOSPHATASE 70 U/L (38-126); ANION GAP 10 (5-19); ASPARTATE AMINO TRANSFERASE 57 U/L (14-36); BILIRUBIN,DIRECT 0.2 mg/dL (0.0-0.4); BILIRUBIN,TOTAL 0.7 mg/dL (0.2-1.3); BLOOD UREA NITROGEN 13 mg/dL (7-20); CALCIUM 9.6 mg/dL (8.4-10.2); CARBON DIOXIDE 27 mmol/L (22-30); CHLORIDE 102 mmol/L (98-107); GLUCOSE 83 mg/dL (75-110); POTASSIUM 4.1 mmol/L (3.6-5.0); TOTAL PROTEIN 8.5 g/dL (6.3-8.2)
[2020-08-04] MEDS ORDERED: DIPHENHYDRAMINE HCL 50 MG/ML VIAL IV ONE (15:34)
[2020-08-04 15:58] VITALS: BP 111/67
== END 2020-08-04 15:58 | disposition home or self-care (01) ==
LOC: ER 11:56
DX: L03.114 Cellulitis of left upper limb (principal); F15.10 Other stimulant abuse, uncomplicated; R74.8 Abnormal levels of other serum enzymes; Z88.2 Allergy status to sulfonamides
CPT/HCPCS: 99284; 96375; 96365; 36415; 87040; 83605; 84703; 85025; 80053; 81001; 73130; J1200; J3490; J1885; J7030

== ENCOUNTER 2020-08-05 17:49 | Emergency (ER) | payer MEDICAID ==
[2020-08-05 18:11] VITALS: BP 105/55
--- NOTE | 2020-08-05 19:54 | ER Document Report ---
ED Medical Screen (RME) - General Stated Complaint: SKIN PROBLEM Time Seen by Provider: 08/05/20 18:35 Primary Care Provider: ARVIND ZULETA [Primary Care Provider] - Follow up as needed TRAVEL OUTSIDE OF THE [place] IN LAST 30 DAYS: No - HPI Notes: 08/05/20 19:54 24-year-old female presents to the emergency room today for evaluation of left hand swelling and pain after she injected herself 3 days ago with m ethamphetamine. She was seen in the emergency room yesterday for left finger cell, she did inject to her left second phalanx at a superficial vein. Labs were done as well as x-ray, patient was given a dose of IV antibiotics and sent home with clindamycin. Patient states today that the hand pain has become much worse as well as the hand swelling and its extending almost to her wrist. Reports pain is 4 out of 5. LMP 3 weeks ago. Patient did take her oral antibiotics today, 2 doses. denies any fevers or chills I have greeted and performed a rapid initial assessment of this patient. A comp rehensive ED assessment and evaluation of the patient, analysis of test results and completion of the medical decision making process will be conducted by additional ED providers. PHYSICAL EXAMINATION: GENERAL: Well-appearing, well-nourished and in no acute distress. CV: s1, s2 regular LUNGS: No respiratory distress Musculoskeletal: Normal range of motion. left dorsal aspect of hand with swe lling tenderness on palpation. swelling to left phalange. Unable to make a full crew mess attendant on the left. Radial pulses +2 bilaterally and equally. Cap refill less than 3 seconds. NEUROLOGICAL: Normal speech, normal gait. SKIN: Warm, Dry, normal turgor, no rashes or lesions noted. The patient was evaluated during a global COVID-19 pandemic and that diagnosis was suspected/considered upon their initial presentation. Their evaluation, treatment and testing was consistent with current guidelines for patients who present with complaints or symptoms and may be related to COVID-19. - Related Data Allergies/Adverse Reactions: Sulfa (Sulfonamide Antibiotics) Allergy (Verified 09/29/19 17:45) Past Medical History - Social History Family history: None - Past Medical History Cardiac Medical History: Denies: Hx Coronary Artery Disease, Hx DVT, Hx Hypertension, Hx Pulmonary Embolism Pulmonary Medical History: Reports: Hx Pneumonia Denies: Hx Asthma, Hx COPD, Hx Respiratory Failure Neurological Medical History: Denies: Hx Seizures Endocrine Medical History: Reports: Hx Hypothyroidism. Denies: Hx Diabetes Mellitus Type 1, Hx Hyperthyroidism Renal/ Medical History: Denies: Hx Peritoneal Dialysis GI Medical History: Denies: Hx Cirrhosis, Hx Crohn's Disease, Hx Hepatitis, Hx Ulcerative Colitis Musculoskeltal Medical History: Denies Hx Arthritis, Denies Hx Fibromyalgia Skin Medical History: Denies Hx Eczema, Denies Hx Psoriasis Psychiatric Medical History: Reports: Hx Bipolar Disorder, Hx Depression Infectious Medical History: Denies: Hx Hepatitis Past Surgical History: Reports: Hx Orthopedic Surgery - R arm ORIF Physical Exam - Vital signs Vitals: Temp Pulse Resp BP Pulse Ox 98.0 F 80 16 105/55 L 100 08/05/20 18:10 08/05/20 18:10 08/05/20 18:10 08/05/20 18:10 08/05/20 18:10 Course - Vital Signs Vital signs: Temp Pulse Resp BP Pulse Ox 98.0 F 80 16 105/55 L 100 08/05/20 18:10 08/05/20 18:10 08/05/20 18:10 08/05/20 18:10 08/05/20 18:10 Doctor's Discharge - Discharge Referrals: LOCALMD,NO [Primary Care Provider] - Follow up as needed
== END 2020-08-05 21:45 | disposition left against medical advice (07) ==
LOC: ER 17:49
DX: M79.89 Other specified soft tissue disorders (principal); M79.642 Pain in left hand; Z88.2 Allergy status to sulfonamides
CPT/HCPCS: 99281

== ENCOUNTER 2020-08-06 11:39 | Emergency (ER) | payer MEDICAID ==
--- NOTE | 2020-08-06 12:01 | ER Document Report ---
ED Medical Screen (RME) - General Chief Complaint: Hand Swelling Stated Complaint: LEFT HAND PAIN Time Seen by Provider: 08/06/20 11:54 Notes: Patient is a 24-year-old female who presents emergency department with a chief complaint of left hand pain. Patient was seen here on the and diagnosed with left hand cellulitis, has been using cool compresses and taking clindamycin as prescribed but the symptoms have worsened. Patient reports that the redness is starting to spread on the dorsal aspect of her left hand as well as swelling. The swelling and redness do not extend above the wrist. Patient reports it is difficult to make a fist as this causes pain. Patient reports she was seen here yesterday, was waiting for blood work, but left due to a long wait. Patient denies fever or chills. Patient is an IV drug user and admits to injecting IV methamphetamine which was suspected to be the cause of the cellulitis. TRAVEL OUTSIDE OF THE [place] IN LAST 30 DAYS: No - Related Data Allergies/Adverse Reactions: Sulfa (Sulfonamide Antibiotics) Allergy (Verified 09/29/19 17:45) Past Medical History - Social History Family history: None - Past Medical History Cardiac Medical History: Denies: Hx Coronary Artery Disease, Hx DVT, Hx Hypertension, Hx Pulmonary Embolism Pulmonary Medical History: Reports: Hx Pneumonia Denies: Hx Asthma, Hx COPD, Hx Respiratory Failure Neurological Medical History: Denies: Hx Seizures Endocrine Medical History: Reports: Hx Hypothyroidism. Denies: Hx Diabetes Mellitus Type 1, Hx Hyperthyroidism Renal/ Medical History: Denies: Hx Peritoneal Dialysis GI Medical History: Denies: Hx Cirrhosis, Hx Crohn's Disease, Hx Hepatitis, Hx Ulcerative Colitis Musculoskeltal Medical History: Denies Hx Arthritis, Denies Hx Fibromyalgia Skin Medical History: Denies Hx Eczema, Denies Hx Psoriasis Psychiatric Medical History: Reports: Hx Bipolar Disorder, Hx Depression Infectious Medical History: Denies: Hx Hepatitis Past Surgical History: Reports: Hx Orthopedic Surgery - R arm ORIF Physical Exam - Vital signs Vitals: Temp Pulse Resp BP Pulse Ox 98.9 F 119 H 16 132/70 H 100 08/06/20 11:42 08/06/20 11:42 08/06/20 11:42 08/06/20 11:42 08/06/20 11:42 Course - Re-evaluation Re-evalutation: 08/06/20 12:00 Patient has edema and slight erythema to the dorsal aspect of the left hand. This does not extend above the wrist. Patient unable to make a fist due to the pain that she reports. Patient has less than 2-second cap refill in all digits. Patient does have a puncture tere noted to the proximal left index finger. 08/06/20 12:01 Patient was noted to be tachycardic with a heart rate of 119. Patient is afebrile. Will obtain basic labs, give a liter of fluid. Patient to be evaluated once placed in a private room. I have greeted and performed a rapid initial assessment of this patient. A comprehensive ED assessment and evaluation of the patient, analysis of test results and completion of the medical decision making process will be conducted by additional ED providers. - Vital Signs Vital signs: Temp Pulse Resp BP Pulse Ox 98.9 F 119 H 16 132/70 H 100 08/06/20 11:42 08/06/20 11:42 08/06/20 11:42 08/06/20 11:42 08/06/20 11:42
[2020-08-06] MEDS ORDERED: NORMAL SALINE 1000 ML 1,000 ML IV ONE (12:02)
--- NOTE | 2020-08-06 14:31 | ER Document Report ---
ED Hand/Wrist Injury - General Chief Complaint: Hand Pain Stated Complaint: LEFT HAND PAIN Time Seen by Provider: 08/06/20 11:54 Primary Care Provider: [facility] [Provider Group] - Follow up as needed Mode of Arrival: Ambulatory Information source: Patient Notes: Patient with a history of IV drug abuse. Patient reports using methamphetamine into her hand recently. Patient was seen in the ER 2 prior visits and diagnosed with cellulitis and placed on clindamycin. Patient with left dorsal hand swelling with mild erythema about the second metacarpal. Patient states that she did attempt heroin in the past, although primarily uses methamphetamine. Patient states she did get her prescription antibiotic filled and has been taking it. Patient denies any fever. Patient is right-hand dominant. TRAVEL OUTSIDE OF THE [place] IN LAST 30 DAYS: No - HPI Injury to: Hand Onset: Other - 3 days Timing: Still present Quality of pain: Achy Pain Level: 2 Context: Swelling - Related Data Allergies/Adverse Reactions: Sulfa (Sulfonamide Antibiotics) Allergy (Verified 09/29/19 17:45) Home Medications: Lamictal, Abilify, Trazadone Past Medical History - General Information source: Patient - Social History Smoking Status: Never Smoker Frequency of alcohol use: None Drug Abuse: Methamphetamine, Other - IVDA Occupation: none Lives with: Spouse/Significant other Family History: Reviewed & Not Pertinent, CAD, DM, Hypertension, Malignancy, Other - Significant history of mental illness Pulmonary Medical History: Reports: Hx Pneumonia Neurological Medical History: Denies: Hx Seizures Endocrine Medical History: Reports: Hx Hypothyroidism Renal/ Medical History: Denies: Hx Peritoneal Dialysis Musculoskeletal Medical History: Denies Hx Arthritis, Denies Hx Fibromyalgia Skin Medical History: Denies Hx Eczema, Denies Hx Psoriasis Psychiatric Medical History: Reports: Hx Bipolar Disorder, Hx Depression Infectious Medical History: Denies: Hx Hepatitis Past Surgical History: Reports: Hx Orthopedic Surgery - R arm ORIF Review of Systems - Review of Systems Constitutional: No symptoms reported. denies: Fever EENT: No symptoms reported Cardiovascular: No symptoms reported. denies: Chest pain Respiratory: No symptoms reported. denies: Cough, Short of breath Gastrointestinal: No symptoms reported. denies: Nausea, Vomiting Genitourinary: No symptoms reported Female Genitourinary: No symptoms reported. denies: Musculoskeletal: No symptoms reported Skin: Other - Redness to left hand Hematologic/Lymphatic: No symptoms reported Neurological/Psychological: No symptoms reported Physical Exam - Vital signs Vitals: Temp Pulse Resp BP Pulse Ox 98.9 F 119 H 16 132/70 H 100 08/06/20 11:42 08/06/20 11:42 08/06/20 11:42 08/06/20 11:42 08/06/20 11:42 - General General appearance: Appears well, Alert In distress: None - HEENT Head: Normocephalic Eyes: Periorbital ecchymosis - Left eye Conjunctiva: Normal Pupils: PERRL Nasal: Normal Mouth/Lips: Normal Mucous membranes: Normal Neck: Normal, Supple - Respiratory Respiratory status: No respiratory distress Chest status: Nontender Breath sounds: Normal. No: Rales, Rhonchi, Stridor, Wheezing Chest palpation: Normal - Cardiovascular Rhythm: Regular Heart sounds: S1 appreciated, S2 appreciated Pulses: Normal: Radial - Back Back: Normal - Extremities General upper extremity: Tender - Left hand, Normal ROM General lower extremity: Normal inspection, Normal ROM Hand: Tender - Tenderness to the left second metacarpal with 1+ edema and mild erythema to dorsal aspect, Swelling, Other - Patient with full range of motion to fingers of pain, no concern for tenosynovitis. No: Deformity, Tendon deficit - Neurological Neuro grossly intact: Yes Cognition: Normal [place] Coma Scale Eye Opening: Spontaneous [place] Coma Scale Verbal: Oriented Franci Coma Scale Motor: Obeys Commands [place] Coma Scale Total: 15 - Psychological Associated symptoms: Normal affect, Normal mood - Skin Skin Temperature: Warm Skin Moisture: Dry Skin Color: Erythema - Dorsal aspect of left hand over the second metacarpal, multiple track liu to bilateral upper extremities Course - Re-evaluation Re-evalutation: 08/06/20 14:27 Nacho Heaton NP who saw patient each of her prior two visits, to bedside for consultation. He reports that patient's erythema is actually improved as compared to her initial and her subsequent visit. He states that her erythema had initially extended to the dorsal aspect of the left second finger and this is resolved today. He states that the erythema also extended further on her dorsal hand which has improved. Attempted to reassure patient that redness and swelling does seem to be improving at this time. Patient states that she is still concerned that she is dehydrated and would like to receive IV fluids at this time. 08/06/20 15:52 Patient has been tolerating oral fluids without any emesis. Repeat vital signs were performed, patient without any tachycardia. Patient nontoxic in appearance. Staff unsuccessful with obtaining IV for patient as requested for fluid administration. Patient has tolerated oral fluids and is encouraged to continue to hydrate. Patient is agreeable with deferring any IV fluids at this time. Do not feel that labs are warranted as patient clinically is improving. Patient is anxious and does continue to ask if staff are certain that her symptoms are improving. Patient encouraged to avoid use of IV drugs. Will use a skin pen to tere area of erythema. Patient will be encouraged to return immediately for any worsening symptoms any fever or lack of improvement. 08/06/20 18:36 - Vital Signs Vital signs: Temp Pulse Resp BP Pulse Ox 98.8 F 78 20 130/72 H 100 08/06/20 15:46 08/06/20 15:46 08/06/20 15:46 08/06/20 15:46 08/06/20 15:46 - Laboratory Results Critical Laboratory Results Reviewed: No Critical Results - Radiology Results Critical Radiology Results Reviewed: No Critical Results Discharge - Discharge Clinical Impression: Amphetamine abuse, Cellulitis of left hand, Anxiety about health Condition: Stable Disposition: HOME, SELF-CARE Instructions: Anxiety ([facility]), Cellulitis ([facility]) Additional Instructions: Return immediately for any new or worsening symptoms: Fever, increased redness, increased swelling or pain or any concerning new symptoms Followup with your primary care provider, call tomorrow to make a followup a ppointment Stop injecting drugs as this can worsen your symptoms Referrals: [facility] [Provider Group] - Follow up as needed
[2020-08-06 14:35] LABS: URINE BARBITURATES SCREEN NEGATIVE; URINE BENZODIAZEPINES SCREEN NEGATIVE; URINE COCAINE SCREEN NEGATIVE; URINE MARIJUANA (THC) SCREEN NEGATIVE; URINE METHADONE SCREEN NEGATIVE; URINE PHENCYCLIDINE SCREEN NEGATIVE
[2020-08-06 15:47] VITALS: BP 130/72
== END 2020-08-06 16:17 | disposition home or self-care (01) ==
LOC: ER 11:39
DX: L03.114 Cellulitis of left upper limb (principal); F15.10 Other stimulant abuse, uncomplicated; F41.9 Anxiety disorder, unspecified; F31.9 Bipolar disorder, unspecified; Z79.899 Other long term (current) drug therapy; Z88.2 Allergy status to sulfonamides
CPT/HCPCS: 80307; 81025; 99283